=== PATIENT | male | born 1950 | race Caucasian/White ===

== ENCOUNTER 2017-08-30 18:42 | Inpatient (IN) | payer MEDICARE ==
[~2017-08-30] VITALS: Ht 175.3 cm; Wt 59.6 kg
--- NOTE | 2017-08-30 19:53 | PD.CONS ---
History of Present Illness Service Neurosurgery Consult Requested By Insulation Blower Reason for Consult Brain mass Primary Care Physician Unknown Diagnoses: History of Present Illness 66-year-old right-handed male with a two-week history of confusion with difficulty with speech and generalized weakness. Patient and also relates six-month history of right leg weakness and especially when he is driving he notices right leg getting weak and numb. Denies any headache or any nausea or vomiting. Denies any incontinence. His appetite has been poor and his loss weight over the past several months. Given worsening speech and confusion he was taken to [facility] in [place] and CT scan head without contrast obtained reveals a 5.1 cm cystic mass in the left frontal lobe with surrounding vasogenic edema and mass effect. He is transferred to [facility] for further management. Review of Systems ROS Limitations: Speech Impaired, Poor Historian Constitutional: COMPLAINS OF: Diaphoretic episodes, Fatigue, Fever, Weight gain , Weight loss, Chills, Dizziness, Change in appetite, Night Sweats Endocrine: DENIES: Heat/cold intolerance, Polydipsia, Polyuria, Polyphagia Eyes: DENIES: Blurred vision, Diplopia, Eye inflammation, Eye pain, Vision loss , Photosensitivity, Double Vision Ears, nose, mouth, throat: DENIES: Tinnitus, Hearing loss, Vertigo, Nasal discharge, Oral lesions, Throat pain, Hoarseness, Ear Pain, Running Nose, Epistaxis, Sinus Pain, Toothache, Odynophagia Respiratory: COMPLAINS OF: Cough, Wheezing, Shortness of breath, DENIES: Apneas , Snoring, Hemoptysis, Sputum production Cardiovascular: COMPLAINS OF: Dyspnea on Exertion, DENIES: Chest pain, Palpitations, Syncope, PND, Lower Extremity Edema, Orthopnea, Claudication Gastrointestinal: COMPLAINS OF: Constipation, DENIES: Abdominal pain, Black stools, Bloody stools, Diarrhea, Nausea, Vomiting, Difficulty Swallowing, Anorexia Genitourinary: DENIES: Sexual dysfunction, Urinary frequency, Urinary incontinence, Urgency, Hematuria, Dysuria, Nocturia, Penile Discharge, Testicular Pain, Testicular Swelling Musculoskeletal: DENIES: Joint pain, Muscle aches, Stiffness, Joint Swelling, Back pain, Neck pain Integumentary: DENIES: Abnormal pigmentation, Nail changes, Pruritus, Rash Immunologic/allergic: DENIES: Eczema, Urticaria Neurologic: COMPLAINS OF: Localized weakness, Paresthesias, Speech Problems, DENIES: Abnormal gait, Headache, Seizures, Tremor, Poor Balance Psychiatric: COMPLAINS OF: Confusion, DENIES: Anxiety, Mood changes, Depression , Hallucinations, Agitation, Suicidal Ideation, Homicidal Ideation, Delusions Except as stated in HPI: all other systems reviewed are Neg Past Family Social History Allergies: Coded Allergies: No Known Allergies (Unverified , 08/30/17) Past Medical History Coronary artery disease with myocardial infarction, rheumatoid arthritis, 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 Past Surgical History Coronary artery bypass grafting 2 years ago and also several years prior to that with interim coronary artery stenting Reported Medications Ventolin Hfa 18 GM Inh (Albuterol Sulfate) 90 Mcg/Act Aer 1 Puff INH QID Aldactone (Spironolactone) 25 Mg Tab 25 Mg PO DAILY Prednisone 1 Mg Tab 1 Mg PO BID Lisinopril 10 Mg Tab 10 Mg PO DAILY Coreg (Carvedilol) 25 Mg Tab 25 Mg PO BID Atorvastatin (Atorvastatin Calcium) 80 Mg Tab 80 Mg PO HS Aspirin EC (Aspirin) 81 Mg Tabdr 81 Mg PO DAILY Norvasc (Amlodipine Besylate) 10 Mg Tab 10 Mg PO DAILY Family History Father had lung cancer otherwise unremarkable Social History He is and his and daughter are here with him. They spend the winter time in [place] and this year in [place]. He smokes over a pack a day of cigarettes and drinks alcohol on weekends. Physical Exam Physical Exam GENERAL: This is a well-nourished, well-developed patient, in no apparent distress. SKIN: No rashes, ecchymoses or lesions. Cool and dry. HEAD: Atraumatic. Normocephalic. No temporal or scalp tenderness. EYES: Pupils equal round and reactive. Extraocular motions intact. No scleral icterus. No injection or drainage. ENT: Nose without bleeding, purulent drainage or septal hematoma. Throat without erythema, tonsillar hypertrophy or exudate. Uvula midline. Airway patent. NECK: Trachea midline. No JVD or lymphadenopathy. Supple, nontender, no meningeal signs. CARDIOVASCULAR: Regular rate and rhythm with positive murmur. RESPIRATORY: Bilateral wheezing noted. GASTROINTESTINAL: Abdomen soft, non-tender, nondistended. No hepato-splenomegaly , or palpable masses. No guarding. MUSCULOSKELETAL: Extremities without clubbing, cyanosis, or edema. No joint tenderness, effusion, or edema noted. No calf tenderness. Negative Homans sign bilaterally. NEUROLOGICAL:. Awake but only oriented to name not location or date; moderate expressive aphasia with the naming and word finding difficulty. Follows simple commands with difficulty with complex commands. Extraocular muscles are intact, pupils are equal, face is symmetric, tongue is midline. He moves all 4 extremities overall good strength. Equivocal right Babinski. Light touch sensation intact Assessment and Plan Assessment and Plan 66-year-old gentleman with a large left frontal cystic mass with surrounding mass effect and edema. Differential diagnosis includes a metastasis as well as a primary lung mass along with the infectious inflammatory etiologies. We will obtain an MRI scan of the brain with and without contrast. Also need systemic workup with a CT of the chest, abdomen and pelvis to rule out systemic primary or metastatic disease. He'll be started on Decadron for the edema along with Keppra for seizure prophylaxis and gastrointestinal stress ulcer prophylaxis. Mechanical DVT prophylaxis. Proventil treatments for his wheezing likely related to COPD and chronic smoking. Sean Freeman MD Aug 30, 2017 19:53
[2017-08-30 20:00] VITALS: PULSE 77
[2017-08-30] MEDS ORDERED: CALCIUM GLUCONATE INJ 1 GM in SODIUM CHLORIDE 0.9% INJ 100 ML IV PRN (20:00)
[2017-08-30] MEDS ORDERED: LABETALOL HCL 100 MG/20 ML VIAL IV PUSH PRN (20:00)
[2017-08-30] MEDS ORDERED: niCARdipine INJ 25 MG in SODIUM CHLOR 0.9% 250 ML INJ 240 ML IV PRN (20:00)
[2017-08-30] MEDS ORDERED: ACETAMINOPHEN/HYDROcodone 325 MG/10 MG TAB PO PRN ×2 (20:00)
[2017-08-30] MEDS ORDERED: POTASSIUM CHLOR 20 MEQ PREMIX 100 ML IV PRN (20:00)
[2017-08-30] MEDS ORDERED: RESP: ALBUTEROL 2.5 MG/3 ML NEB (PRN) NEB (20:00)
[2017-08-30] MEDS ORDERED: SENNOSIDES 8.6 MG TAB PO PRN (20:00)
[2017-08-30] MEDS ORDERED: LORazepam 2 MG/ML VIAL IV PUSH PRN (20:00)
[2017-08-30] MEDS ORDERED: BISACODYL 10 MG SUPP RECTAL PRN (20:00)
[2017-08-30] MEDS ORDERED: MAGNESIUM HYDROXIDE SUSP 30 ML CUP PO PRN (20:00)
[2017-08-30] MEDS ORDERED: ALUMINUM/MAGNESIUM/SIMETH 30 ML CUP PO PRN (20:00)
[2017-08-30] MEDS ORDERED: MAGNESIUM SULFATE INJ 2 GM in SODIUM CHLORIDE 0.9% INJ 100 ML IV PRN (20:00)
[2017-08-30] MEDS ORDERED: SODIUM CHLORIDE 0.9% FLUSH 10 ML FLUSH IV FLUSH PRN (20:00)
[2017-08-30] MEDS ORDERED: PROMETHAZINE INJ 25 MG/ML VIAL IM PRN (20:00)
[2017-08-30] MEDS ORDERED: LACTULOSE SYRUP 20 GM/30 ML CUP PO PRN (20:00)
[2017-08-30] MEDS ORDERED: ONDANSETRON HCL 4 MG/2 ML VIAL IV PUSH PRN (20:00)
[2017-08-30] MEDS ORDERED: cloNIDine HCL 0.1 MG TAB PO PRN (20:00)
[2017-08-30 21:24] VITALS: O2SAT 93
[2017-08-30] MEDS: levETIRAcetam 500 MG TAB PO SCH (21:28)
[2017-08-30] MEDS: DEXAMETHASONE SOD PHOS 4 MG/ML VIAL IV PUSH SCH (21:28)
[2017-08-30] MEDS: DOCUSATE SODIUM 50 MG/SENNA 8.6 MG TAB PO SCH (21:28)
[2017-08-30] MEDS: SODIUM CHLORIDE 0.9% FLUSH 10 ML FLUSH IV FLUSH SCH (21:29)
[2017-08-30 22:00] VITALS: PULSE 78
[2017-08-30] MEDS ORDERED: RESP: ALBUTEROL 2.5 MG/IPRATROPIUM 0.5 MG NEB (PRN) NEB (22:30)
--- NOTE | 2017-08-30 22:30 | HHI.HP ---
HPI Service Critical Care Medicine Primary Care Physician Unknown Admission Diagnosis Diagnosis: Travel History International Travel<30 Days: No Contact w/Intl Traveler <30 Da: No Traveled to Known Affected Are: No History of Present Illness 66-year-old right-handed male presented to [facility] with a two- week history of confusion with difficulty with speech and generalized weakness. He also relates six-month history of right leg weakness and especially when he is driving he notices right leg getting weak and numb. Denies any headache or any nausea or vomiting. Denies any incontinence. His appetite has been poor and his loss weight over the past several months. Given worsening speech and confusion he was taken to [facility] in [place] and CT scan head without contrast obtained reveals a 5.1 cm cystic mass in the left frontal lobe with surrounding vasogenic edema and mass effect. He is transferred to [facility] for higher level of care. Review of Systems ROS Limitations: Speech Impaired, Poor Historian ROS Constitutional: COMPLAINS OF: Diaphoretic episodes, Fatigue, Fever, Weight gain , Weight loss, Chills, Dizziness, Change in appetite, Night Sweats Endocrine: DENIES: Heat/cold intolerance, Polydipsia, Polyuria, Polyphagia Eyes: DENIES: Blurred vision, Diplopia, Eye inflammation, Eye pain, Vision loss , Photosensitivity, Double Vision Ears, nose, mouth, throat: DENIES: Tinnitus, Hearing loss, Vertigo, Nasal discharge, Oral lesions, Throat pain, Hoarseness, Ear Pain, Running Nose, Epistaxis, Sinus Pain, Toothache, Odynophagia Respiratory: COMPLAINS OF: Cough, Wheezing, Shortness of breath, DENIES: Apneas , Snoring, Hemoptysis, Sputum production Cardiovascular: COMPLAINS OF: Dyspnea on Exertion, DENIES: Chest pain, Palpitations, Syncope, PND, Lower Extremity Edema, Orthopnea, Claudication Gastrointestinal: COMPLAINS OF: Constipation, DENIES: Abdominal pain, Black stools, Bloody stools, Diarrhea, Nausea, Vomiting, Difficulty Swallowing, Anorexia Genitourinary: DENIES: Sexual dysfunction, Urinary frequency, Urinary incontinence, Urgency, Hematuria, Dysuria, Nocturia, Penile Discharge, Testicular Pain, Testicular Swelling Musculoskeletal: DENIES: Joint pain, Muscle aches, Stiffness, Joint Swelling, Back pain, Neck pain Integumentary: DENIES: Abnormal pigmentation, Nail changes, Pruritus, Rash Immunologic/allergic: DENIES: Eczema, Urticaria Neurologic: COMPLAINS OF: Localized weakness, Paresthesias, Speech Problems, DENIES: Abnormal gait, Headache, Seizures, Tremor, Poor Balance Psychiatric: COMPLAINS OF: Confusion, DENIES: Anxiety, Mood changes, Depression , Hallucinations, Agitation, Suicidal Ideation, Homicidal Ideation, Delusions Past Family Social History Allergies: Coded Allergies: No Known Allergies (Unverified , 08/30/17) Past Medical History Coronary artery disease with myocardial infarction Rheumatoid arthritis 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 Past Surgical History Coronary artery bypass grafting 2 years ago and also several years prior to that with interim coronary artery stenting Reported Medications Reported Meds & Active Scripts Active Reported Ventolin Hfa 18 GM Inh (Albuterol Sulfate) 90 Mcg/Act Aer 1 Puff INH QID Aldactone (Spironolactone) 25 Mg Tab 25 Mg PO DAILY Prednisone 1 Mg Tab 1 Mg PO BID Lisinopril 10 Mg Tab 10 Mg PO DAILY Coreg (Carvedilol) 25 Mg Tab 25 Mg PO BID Atorvastatin (Atorvastatin Calcium) 80 Mg Tab 80 Mg PO HS Aspirin EC (Aspirin) 81 Mg Tabdr 81 Mg PO DAILY Norvasc (Amlodipine Besylate) 10 Mg Tab 10 Mg PO DAILY Active Ordered Medications Current Medications Medications (Trade) Dose Ordered Sig/Aisha Route PRN Reason Start Time Stop Time Status Last Admin Dose Admin Sodium Chloride (NS Flush) 2 ml UNSCH PRN IV FLUSH FLUSH AFTER USING IV ACCESS 08/30/17 20:00 Sodium Chloride (NS Flush) 2 ml BID IV FLUSH 08/30/17 21:00 08/30/17 21:29 Levetriacetam (Keppra) 500 mg Q12H PO 08/30/17 21:00 08/30/17 21:28 Lorazepam (Ativan Inj) 1 mg Q1H PRN IV PUSH SEIZURES 08/30/17 20:00 Al Hydrox/Mg Hydrox/Simethicone (Mag-Al Plus Susp Liq) 30 ml Q6H PRN PO DYSPEPSIA 08/30/17 20:00 Pantoprazole Sodium (Protonix) 40 mg DAILY PO 08/31/17 09:00 Ondansetron HCl (Zofran Inj) 4 mg Q6H PRN IV PUSH NAUSEA OR VOMITING 08/30/17 20:00 Promethazine HCl (Phenergan Inj) 25 mg Q4H PRN IM NAUSEA OR VOMITING 08/30/17 20:00 Calcium Gluconate 1 gm/Sodium Chloride 110 ml @ 110 mls/hr UNSCH PRN IV SEE LABEL COMMENTS 08/30/17 20:00 Potassium Chloride 100 ml @ 50 mls/hr UNSCH PRN IV POTASSIUM LESS THAN 4 08/30/17 20:00 Magnesium Sulfate 2 gm/Sodium Chloride 104 ml @ 100 mls/hr UNSCH PRN IV MAGNESIUM LESS THAN 2 08/30/17 20:00 Acetaminophen/ Hydrocodone Bitart ([place] 10-325 Mg) 1 tab Q4H PRN PO PAIN SCALE 1 TO 5 08/30/17 20:00 Acetaminophen/ Hydrocodone Bitart ([place] 10-325 Mg) 2 tab Q4H PRN PO PAIN SCALE 6 TO 10 08/30/17 20:00 Dexamethasone Sodium Phosphate (Decadron Inj) 4 mg Q6H IV PUSH 08/30/17 21:00 08/30/17 21:28 Labetalol HCl (Trandate Inj) 10 mg Q1H PRN IV PUSH SYS BP GREATER THAN 170 MMHG 08/30/17 20:00 Clonidine (Catapres) 0.1 mg Q6H PRN PO SYS BP GREATER THAN 170 MMHG 08/30/17 20:00 Albuterol Sulfate (Albuterol Neb) 2.5 mg Q4HR NEB PRN NEB WHEEZING 08/30/17 20:00 Senna/Docusate Sodium (Kati-Colace) 1 tab BID PO 08/30/17 21:00 08/30/17 21:28 Magnesium Hydroxide (Milk Of Magnesia Liq) 30 ml Q12H PRN PO Mild constipation 08/30/17 20:00 Sennosides (Senokot) 17.2 mg Q12H PRN PO Moderate constipation 08/30/17 20:00 Bisacodyl (Dulcolax Supp) 10 mg DAILY PRN RECTAL SEVERE CONSITIPATION 08/30/17 20:00 Lactulose (Lactulose Liq) 30 ml DAILY PRN PO SEVERE CONSITIPATION 08/30/17 20:00 Nicardipine HCl 25 mg/Sodium Chloride 250 ml @ 50 mls/hr TITRATE PRN IV Blood pressure management 08/30/17 20:00 Family History Father had lung cancer otherwise unremarkable Social History He smokes over a pack a day of cigarettes and drinks alcohol on weekends. Denies illicit drug abuse He is and his and daughter are here with him. Physical Exam Vital Signs Vital Signs Date Time Temp Pulse Resp B/P (MAP) Pulse Ox O2 Delivery O2 Flow Rate FiO2 08/30/17 21:24 93 Physical Exam GENERAL: This is a well-nourished, well-developed patient, in no apparent distress. SKIN: No rashes, ecchymoses or lesions. Cool and dry. HEAD: Atraumatic. Normocephalic. No temporal or scalp tenderness. EYES: Pupils equal round and reactive. Extraocular motions intact. No scleral icterus. No injection or drainage. ENT: Nose without bleeding, purulent drainage or septal hematoma. Throat without erythema, tonsillar hypertrophy or exudate. Uvula midline. Airway patent. NECK: Trachea midline. No JVD or lymphadenopathy. Supple, nontender, no meningeal signs. CARDIOVASCULAR: Regular rate and rhythm with positive murmur. RESPIRATORY: Bilateral wheezing noted. GASTROINTESTINAL: Abdomen soft, non-tender, nondistended. No hepato-splenomegaly , or palpable masses. No guarding. MUSCULOSKELETAL: Extremities without clubbing, cyanosis, or edema. No joint tenderness, effusion, or edema noted. No calf tenderness. Negative Homans sign bilaterally. NEUROLOGICAL:. Awake but only oriented to name not location or date; moderate expressive aphasia with the naming and word finding difficulty. Follows simple commands with difficulty with complex commands. Extraocular muscles are intact, pupils are equal, face is symmetric, tongue is midline. He moves all 4 extremities overall good strength. Equivocal right Babinski. Light touch sensation intact Laboratory Laboratory Tests Test 08/31/17 00:14 08/31/17 00:15 White Blood Count 3.3 TH/MM3 Red Blood Count 4.19 MIL/MM3 Hemoglobin 14.2 GM/DL Hematocrit 40.2 % Mean Corpuscular Volume 96.0 FL Mean Corpuscular Hemoglobin 33.9 PG Mean Corpuscular Hemoglobin Concent 35.4 % Red Cell Distribution Width 12.9 % Platelet Count 289 TH/MM3 Mean Platelet Volume 6.8 FL Prothrombin Time 11.8 SEC Prothromb Time International Ratio 1.2 RATIO Activated Partial Thromboplast Time 27.2 SEC Blood Urea Nitrogen 6 MG/DL Creatinine 0.63 MG/DL Random Glucose 160 MG/DL Total Protein 8.0 GM/DL Albumin 3.5 GM/DL Calcium Level 9.4 MG/DL Phosphorus Level 3.4 MG/DL Magnesium Level 1.7 MG/DL Alkaline Phosphatase 109 U/L Aspartate Amino Transf (AST/SGOT) 17 U/L Alanine Aminotransferase (ALT/SGPT) 23 U/L Total Bilirubin 0.4 MG/DL Sodium Level 134 MEQ/L Potassium Level 4.3 MEQ/L Chloride Level 101 MEQ/L Carbon Dioxide Level 26.0 MEQ/L Anion Gap 7 MEQ/L Estimat Glomerular Filtration Rate 127 ML/MIN Caprini VTE Risk Assessment Caprini VTE Risk Assessment: Mod/High Risk (score >= 2) Caprini Risk Assessment Model Point Value = 1 Point Value = 2 Point Value = 3 Point Value = 5 Age 41-60 Minor surgery BMI > 25 kg/m2 Swollen legs Varicose veins or History of unexplained or recurrent spontaneous Oral contraceptives or hormone replacement Sepsis (< 1 month) Serious lung disease, including pneumonia (< 1 month) Abnormal pulmonary function Acute myocardial infarction Congestive heart failure (< 1 month) History of inflammatory bowel disease Medical patient at bed rest Age 61-74 Arthroscopic surgery Major open surgery (> 45 min) Laparoscopic surgery (> 45 min) Malignancy Confined to bed (> 72 hours) Immobilizing plaster cast Central venous access Age >= 75 History of VTE Family history of VTE Factor V Leiden Prothrombin [id number] Lupus anticoagulant Anticardiolipin antibodies Elevated serum homocysteine Heparin-induced thrombocytopenia Other congenital or acquired thrombophilia Stroke (< 1 month) Elective arthroplasty Hip, pelvis, or leg fracture Acute spinal cord injury (< 1 month) Prophylaxis Regimen Total Risk Factor Score Risk Level Prophylaxis Regimen 0-1 Low Early ambulation 2 Moderate Order ONE of the following: *Sequential Compression Device (SCD) *Heparin 5000 units SQ BID 3-4 Higher Order ONE of the following medications: *Heparin 5000 units SQ TID *Enoxaparin/Lovenox 40 mg SQ daily (WT < 150 kg, CrCl > 30 mL/min) *Enoxaparin/Lovenox 30 mg SQ daily (WT < 150 kg, CrCl > 10-29 mL/min) *Enoxaparin/Lovenox 30 mg SQ BID (WT < 150 kg, CrCl > 30 mL/min) AND/OR *Sequential Compression Device (SCD) 5 or more Highest Order ONE of the following medications: *Heparin 5000 units SQ TID (Preferred with Epidurals) *Enoxaparin/Lovenox 40 mg SQ daily (WT < 150 kg, CrCl > 30 mL/min) *Enoxaparin/Lovenox 30 mg SQ daily (WT < 150 kg, CrCl > 10-29 mL/min) *Enoxaparin/Lovenox 30 mg SQ BID (WT < 150 kg, CrCl > 30 mL/min) AND *Sequential Compression Device (SCD) Assessment and Plan Assessment and Plan Brain mass -Neurosurgical consultation -Decadron IV -Keppra prophylaxis -Neuro checks per unit protocol -Further workup per neurosurgery Coronary artery disease -Continue home meds -Aspirin -Atorvastatin Hypertension -Labetalol and clonidine as needed to keep SBP less than 150 -Aldactone -Lisinopril -Coreg -Norvasc COPD -No exacerbation -DuoNeb's as needed -Home dose prednisone DVT GI peripheral -Tests SCDs -Subcu heparin -Pantoprazole Critical Care: The total critical care time was 35 minutes. Time to perform other separately billable procedures was not included in the critical care time. Rik Lou MD Aug 30, 2017 10:30 pm
[2017-08-31] VITALS (16 sets, daily range): BP systolic 94–103; BP diastolic 54–59; PULSE 63–86; RESP 20–26; TEMP 97.9–98.4; O2SAT 94–98
[2017-08-31 00:35] LABS: HEMATOCRIT 40.2 % (39.0-51.0); HEMOGLOBIN 14.2 GM/DL (13.0-17.0); MEAN CORPUSCULAR HEMOGLOBIN 33.9 PG (27.0-34.0); MEAN CORPUSCULAR HGB CONC 35.4 % (32.0-36.0); MEAN PLATELET VOLUME 6.8 FL (7.0-11.0); PLATELET COUNT 289 TH/MM3 (150-450); RED BLOOD COUNT 4.19 MIL/MM3 (4.50-5.90); RED CELL DISTRIBUTION WIDTH 12.9 % (11.6-17.2); WHITE BLOOD COUNT 3.3 TH/MM3 (4.0-11.0)
[2017-08-31 00:50] LABS: INTERNATIONAL NORMALIZED RATIO 1.2 RATIO; PROTHROMBIN TIME - PATIENT 11.8 SEC (9.8-11.6)
[2017-08-31 00:51] LABS: ALBUMIN 3.5 GM/DL (3.4-5.0); ALT (GPT) 23 U/L (12-78); AST (GOT) 17 U/L (15-37); BLOOD UREA NITROGEN 6 MG/DL (7-18); CALCIUM 9.4 MG/DL (8.5-10.1); CHLORIDE 101 MEQ/L (98-107); CREATININE 0.63 MG/DL (0.60-1.30); GLOMERULAR FILTRATION RATE 127 ML/MIN (>89); GLUCOSE,RANDOM 160 MG/DL (74-106); MAGNESIUM 1.7 MG/DL (1.5-2.5); PHOSPHORUS 3.4 MG/DL (2.5-4.9); SODIUM (NA) 134 MEQ/L (136-145)
[2017-08-31 00:53] LABS: ALKALINE PHOSPHATASE 109 U/L (45-117); TOTAL BILIRUBIN ADULT 0.4 MG/DL (0.2-1.0)
[2017-08-31] MEDS ORDERED: ASPI81TA23 PO (01:50)
[2017-08-31] MEDS ORDERED: PRED1 PO (01:50)
[2017-08-31] MEDS ORDERED: CORE25TA PO (01:50)
[2017-08-31] MEDS ORDERED: ATOR80TA45 PO (01:50)
[2017-08-31] MEDS ORDERED: LISI10TA3 PO (01:50)
[2017-08-31] MEDS ORDERED: SPIR25 PO (01:50)
[2017-08-31] MEDS ORDERED: AMLO10 PO (01:50)
[2017-08-31] MEDS ORDERED: VENTAER INH (01:50)
[2017-08-31] MEDS: DEXAMETHASONE SOD PHOS 4 MG/ML VIAL IV PUSH SCH ×4 (03:28→21:03)
[2017-08-31] MEDS ORDERED: HEPARIN SODIUM - SQ 10,000 UNITS/ML VIAL SQ SCH (06:00)
[2017-08-31 07:01] LABS: AUTOMATED NEUTROPHIL # 3.6 TH/MM3 (1.8-7.7); BASOPHIL % 0.2 % (0.0-2.0); HEMATOCRIT 40.7 % (39.0-51.0); HEMOGLOBIN 14.3 GM/DL (13.0-17.0); LYMPH % 16.8 % (9.0-44.0); LYMPHOCYTE # 0.7 TH/MM3 (1.0-4.8); MEAN CELL VOLUME 94.6 FL (80.0-100.0); MEAN CORPUSCULAR HEMOGLOBIN 33.1 PG (27.0-34.0); MEAN PLATELET VOLUME 6.8 FL (7.0-11.0); MONO % 1.1 % (0.0-8.0); MONOCYTE # 0.1 TH/MM3 (0-0.9); NEUT % 81.9 % (16.0-70.0); PLATELET COUNT 317 TH/MM3 (150-450); RED CELL DISTRIBUTION WIDTH 12.8 % (11.6-17.2); WHITE BLOOD COUNT 4.4 TH/MM3 (4.0-11.0)
[2017-08-31 07:25] LABS: ALBUMIN 3.5 GM/DL (3.4-5.0); AST (GOT) 20 U/L (15-37); BICARBONATE 23.3 MEQ/L (21.0-32.0); BLOOD UREA NITROGEN 8 MG/DL (7-18); CALCIUM 9.4 MG/DL (8.5-10.1); CHLORIDE 100 MEQ/L (98-107); CREATININE 0.69 MG/DL (0.60-1.30); GLOMERULAR FILTRATION RATE 114 ML/MIN (>89); GLUCOSE,RANDOM 147 MG/DL (74-106); MAGNESIUM 1.8 MG/DL (1.5-2.5); SODIUM (NA) 135 MEQ/L (136-145)
[2017-08-31 07:30] LABS: ALKALINE PHOSPHATASE 115 U/L (45-117); ALT (GPT) 25 U/L (12-78); PHOSPHORUS 4.4 MG/DL (2.5-4.9); TOTAL BILIRUBIN ADULT 0.5 MG/DL (0.2-1.0); TOTAL PROTEIN 8.2 GM/DL (6.4-8.2)
[2017-08-31] MEDS: RESP: ALBUTEROL 2.5 MG/IPRATROPIUM 0.5 MG NEB (SCH) NEB ×5 (07:37→20:03)
[2017-08-31] MEDS: LISINOPRIL 10 MG TAB PO SCH (08:59)
[2017-08-31] MEDS ORDERED: ASPIRIN EC 81 MG TABEC PO SCH (09:00)
[2017-08-31] MEDS: CARVEDILOL 12.5 MG TAB PO SCH ×2 (09:00→21:03)
[2017-08-31] MEDS ORDERED: predniSONE 1 MG TAB PO SCH (09:00)
[2017-08-31] MEDS: SPIRONOLACTONE 25 MG TAB PO SCH (09:05)
[2017-08-31] MEDS: DOCUSATE SODIUM 50 MG/SENNA 8.6 MG TAB PO SCH ×2 (09:05→21:05)
[2017-08-31] MEDS: SODIUM CHLORIDE 0.9% FLUSH 10 ML FLUSH IV FLUSH SCH ×2 (09:05→21:04)
[2017-08-31] MEDS: PANTOPRAZOLE SOD 40 MG DELAYED RELEASE TAB PO SCH (09:05)
[2017-08-31] MEDS: levETIRAcetam 500 MG TAB PO SCH ×2 (09:06→21:04)
[2017-08-31] MEDS ORDERED: RESP: ALBUTEROL 2.5 MG/3 ML NEB (PRN) NEB (10:15)
[2017-08-31] MEDS ORDERED: DEXTROSE 50% IN WATER 50 ML VIAL(D50) IV PUSH PRN (10:15)
[2017-08-31] MEDS ORDERED: GLUCAGON 1 MG/ML VIAL OTHER PRN (10:15)
--- NOTE | 2017-08-31 10:32 | HHI.NSPN ---
(Mika Martinez) History Chief Complaint: Brain mass with confusion. (Mika Martinez) Interval History 66-year-old right-handed male with a two-week history of confusion with difficulty with speech and generalized weakness. Patient and also relates six-month history of right leg weakness and especially when he is driving he notices right leg getting weak and numb. Denies any headache or any nausea or vomiting. Denies any incontinence. His appetite has been poor and his loss weight over the past several months. Given worsening speech and confusion he was taken to [facility] in [place] and CT scan head without contrast obtained reveals a 5.1 cm cystic mass in the left frontal lobe with surrounding vasogenic edema and mass effect. He is transferred to [facility] for further management. 08/31/17: Pt awake and alert. He has some confusion but follows simple commands well. He has some expressive aphasia. He has had complains of numbness in right lower leg which he states is improved today. (Mika Martinez) Review of Systems General: Negative for: fever, chills, insomnia Respiratory: Negative for: shortness of breath, cough, sputum Cardiovascular: Negative for: chest pain Gastrointestinal: Negative for: nausea, vomitting, diarrhea, constipation ( Mika Martinez) Exam Results Vital Signs Date Time Temp Pulse Resp B/P (MAP) Pulse Ox O2 Delivery O2 Flow Rate FiO2 08/31/17 07:41 97 08/31/17 06:00 82 08/31/17 01:02 21 Intake and Output 08/31/17 08/31/17 09/01/17 08:00 16:00 00:00 Intake Total 180 ml Output Total 800 ml Balance -620 ml (Mika Martinez) Physical Examination General: Pt awake and alert resting in bed in the ICU. Eyes: Pupils equal. Sclera anicteric. Resp: CTA bilaterally. Heart: NSR. 2/6 systolic murmurs Abd: Soft positive bs Skin: No cyanosis or erythema Muscle: Pt moves all 4 extremities appears symmetrically with good strength. Neuro: Pt awake and alert. He follows commands. He has some expressive aphasia and confusion with poor insight although he agrees with plan and nods his head he understands. Pupils equal 3mm bilaterally. (Mika Martinez) Lab, Micro, Other Results Laboratory Tests Test 08/31/17 00:14 08/31/17 00:15 08/31/17 06:40 White Blood Count 3.3 TH/MM3 4.4 TH/MM3 Red Blood Count 4.19 MIL/MM3 4.30 MIL/MM3 Hemoglobin 14.2 GM/DL 14.3 GM/DL Hematocrit 40.2 % 40.7 % Mean Corpuscular Volume 96.0 FL 94.6 FL Mean Corpuscular Hemoglobin 33.9 PG 33.1 PG Mean Corpuscular Hemoglobin Concent 35.4 % 35.0 % Red Cell Distribution Width 12.9 % 12.8 % Platelet Count 289 TH/MM3 317 TH/MM3 Mean Platelet Volume 6.8 FL 6.8 FL Prothrombin Time 11.8 SEC Prothromb Time International Ratio 1.2 RATIO Activated Partial Thromboplast Time 27.2 SEC Blood Urea Nitrogen 6 MG/DL 8 MG/DL Creatinine 0.63 MG/DL 0.69 MG/DL Random Glucose 160 MG/DL 147 MG/DL Total Protein 8.0 GM/DL 8.2 GM/DL Albumin 3.5 GM/DL 3.5 GM/DL Calcium Level 9.4 MG/DL 9.4 MG/DL Phosphorus Level 3.4 MG/DL 4.4 MG/DL Magnesium Level 1.7 MG/DL 1.8 MG/DL Alkaline Phosphatase 109 U/L 115 U/L Aspartate Amino Transf (AST/SGOT) 17 U/L 20 U/L Alanine Aminotransferase (ALT/SGPT) 23 U/L 25 U/L Total Bilirubin 0.4 MG/DL 0.5 MG/DL Sodium Level 134 MEQ/L 135 MEQ/L Potassium Level 4.3 MEQ/L 4.0 MEQ/L Chloride Level 101 MEQ/L 100 MEQ/L Carbon Dioxide Level 26.0 MEQ/L 23.3 MEQ/L Anion Gap 7 MEQ/L 12 MEQ/L Estimat Glomerular Filtration Rate 127 ML/MIN 114 ML/MIN Nasal Screen MRSA (PCR) MRSA NOT DETECTED Neutrophils (%) (Auto) 81.9 % Lymphocytes (%) (Auto) 16.8 % Monocytes (%) (Auto) 1.1 % Eosinophils (%) (Auto) 0.0 % Basophils (%) (Auto) 0.2 % Neutrophils # (Auto) 3.6 TH/MM3 Lymphocytes # (Auto) 0.7 TH/MM3 Monocytes # (Auto) 0.1 TH/MM3 Eosinophils # (Auto) 0.0 TH/MM3 Basophils # (Auto) 0.0 TH/MM3 CBC Comment DIFF FINAL Differential Comment (Mika Martinez) Medical Decision Making Impression and Plan A: 66-year-old gentleman with a large left frontal cystic mass with surrounding mass effect and edema. Differential diagnosis includes a metastasis as well as a primary lung mass along with the infectious inflammatory etiologies. P: We will obtain an MRI scan of the brain with and without contrast. Also need systemic workup with a CT of the chest, abdomen and pelvis to rule out systemic primary or metastatic disease. Continue with Decadron Continue with PT/OT/Speech therapy. Tentatively scheduled for Sunday for surgery. (Mika Martinez) Attending Statement The exam, history, and the medical decision-making described in the above note were completed with the assistance of the mid-level provider. I reviewed and agree with the findings presented. I attest that I had a [id number] encounter with the patient on the same day, and personally performed and documented my assessment and findings in the medical record. Neurologic exam essentially unchanged. MRI scan the brain with solitary large frontal cystic mass. Systemic workup pending. Plan on left craniotomy with resection of the frontal lobe mass. Discussed treatment options with the patient and daughter and they requested we proceed with surgery fully understanding the risks and benefits involved. He has significant COPD and moderate to high risk for complication including ventilator dependency and need for tracheostomy. They're willing to accept these risks and gave informed consent and accordingly the surgery will be scheduled for Sunday. (Sean Freeman MD) Mika Martinez Aug 31, 2017 10:32 Sean Freeman MD Aug 31, 2017 15:38
--- NOTE | 2017-08-31 10:55 | HHI.CCPN ---
Subjective Remarks/Hospital Course 66-year-old right-handed male presented to [facility] with a two- week history of confusion with difficulty with speech and generalized weakness. He also relates six-month history of right leg weakness and especially when he is driving he notices right leg getting weak and numb. Denies any headache or any nausea or vomiting. Denies any incontinence. His appetite has been poor and his loss weight over the past several months. Given worsening speech and confusion he was taken to [facility] in [place] and CT scan head without contrast obtained reveals a 5.1 cm cystic mass in the left frontal lobe with surrounding vasogenic edema and mass effect. He is transferred to [facility] for higher level of care. Subjective 08/31: Resting comfortably in chair in no acute distress. Planning for MRI of brain currently. CT chest, abdomen and pelvis ordered we will likely performed tomorrow due to contrast load. No seizure activity. Objective Vital Signs Date Time Temp Pulse Resp B/P (MAP) Pulse Ox O2 Delivery O2 Flow Rate FiO2 08/31/17 07:41 97 08/31/17 06:00 82 08/31/17 01:02 21 Intake and Output 08/31/17 08/31/17 08/31/17 07:59 15:59 23:59 Intake Total 180 ml Output Total 800 ml Balance -620 ml Result Diagram: 08/31/17 0640 08/31/17 0640 Objective Remarks GENERAL: 66-year-old male currently resting in bed in no acute distress SKIN: Warm and dry. No rashes HEAD: Atraumatic. Normocephalic. EYES: Pupils equal round and reactive. Extraocular motions intact. No scleral icterus. No injection or drainage. ENT/neck: No erythema or exudates. No thyromegaly lymphadenopathy. Trachea midline CARDIOVASCULAR: Regular rate and rhythm. S1, S2 no S4. 1/6 systolic murmur. RESPIRATORY: Diminished breath sounds throughout. Positive straight x-ray wheezing. GASTROINTESTINAL: Abdomen soft, non-tender, nondistended. Hypoactive bowel sounds appreciate MUSCULOSKELETAL: Extremities significant peripheral edema. NEUROLOGICAL:. Awake but only oriented to name not location or date; moderate expressive aphasia with the naming and word finding difficulty. Follows simple commands with difficulty with complex commands. Extraocular muscles are intact, pupils are equal, face is symmetric, tongue is midline. He moves all 4 extremities overall good strength. Equivocal right Babinski. Light touch sensation intact Urinary Catheter: No Assessment to: Continue Vascular Central Line Catheter: No Assessment to: Continue A/P Assessment and Plan Neuro/Psych: Currently on hydrocodone/acetaminophen 10/325 1-2 tablets every 4 hours as needed pain MRI brain pending. CT chest, abdomen and pelvis tomorrow rule out metastasis PT/OT/ST evaluate and treat CV: Hypertension Coronary disease status post CABG Dyslipidemia Currently on carvedilol 20 mg p.o. twice daily, amlodipine 10 mg p.o. daily lisinopril 10 mg p.o. daily for hypertension Continue Spironolactone 25 mg p.o. daily as well Continue atorvastatin 80 mg p.o. daily for dyslipidemia Holding aspirin 81 mg p.o. daily in light of mass Continue dexamethasone 4 mg IV every 6 hours Continue levetiracetam 500 mg p.o. twice daily seizure prophylaxis Resp: COPD Tobaccoism Possible early left lower lobe infiltrate/pneumonia Nasal cannula to maintain saturations greater than equal to 92% Incentive spirometry while awake Budesonide/formoterol 160/4.5 2 puffs twice daily Albuterol/ipratropium aerosols every 4 hours with albuterol aerosols every 2 hours. Dyspnea Follow-up on chest x-ray Tobacco cessation self-education booklet will be provided GI: Continue diet as tolerated Pantoprazole for GI prophylaxis Docusate sodium/senna 1 tablet twice daily for bowel regimen : No indication for Rodriges catheter Endo: Chronic prednisone use milligrams twice daily Hyperglycemia Sliding scale insulin with Novilin R with Accu-Cheks every 6 before meals at bedtime to maintain his euglycemia/low regimen Renal: Creatinine currently within normal limits Monitor urine output Accurate I's and O's Heme: CBC currently within normal limits ID: Possible community acquired pneumonia/left-sided Monitor for infection Start on piperacillin l/tazobactam azithromycin day #1 Blood cultures 2, UA, sputum, urine Legionella pneumococcal antigen/influenza a and B ordered FEN: Hyponatremia Follow BMP in a.m. MSK: RA PT evaluate and treat. On dexamethasone instead prednisone currently. Pain management per neurology section Access -Utilize peripheral IV. Central line if indicated Prophylaxis -GI -pantoprazole -DVT -SCD/holding pharmacological prophylaxis in light of brain mass. Initially when okay with neurosurgery Level 3 follow-up Aristeo Reed MD Aug 31, 2017 10:55
--- NOTE | 2017-08-31 10:56 | RADRPT ---
EXAM DATE/TIME: 08/31/2017 10:20 [facility] COMPARISON: No previous studies available for comparison. INDICATIONS : Short of breath MEDICAL HISTORY : Cardiovascular disease. brain mass SURGICAL HISTORY : CABG. ENCOUNTER: Initial ACUITY: 1 day PAIN SCORE: 0/10 LOCATION: Bilateral chest FINDINGS: A single AP portable erect view of the chest was obtained and demonstrates the patient is status post median sternotomy there is patchy opacity in the left lung base. There is no effusion. The heart siz e is within normal limits with no perihilar edema. The bony thorax is intact. There is mild periphera l scarring. CONCLUSION: 1. Patchy opacity in the left lung base which could represent early pneumonia. 2. Apparent scarring. 3. Status post median sternotomy. Tenzin Carrizales MD on August 31, 2017 at 10:53 Board Certified Radiologist. This report was verified electronically.
[2017-08-31] MEDS ORDERED: GADODIAMIDE PF 287 MG/ML 5 ML VIAL (for RAD MRI) IV PUSH ONE (11:42)
[2017-08-31] MEDS ORDERED: DIATRIZOATE MEGLUM/DIATRIZOATE SOD 9 ML CUP PO ONE (11:45)
[2017-08-31] MEDS: INSULIN ASPART SUPPLEMENTAL SCALE SQ SCH ×3 (12:00→21:00)
--- NOTE | 2017-08-31 12:10 | RADRPT ---
EXAM DATE/TIME: 08/31/2017 11:23 [facility] COMPARISON: No previous studies available for comparison. INDICATIONS : Confusion. CONTRAST: 12 cc Omniscan (gadodiamide) IV MEDICAL HISTORY : Chronic obstructive pulmonary disease. SURGICAL HISTORY : Appendectomy. CABG ENCOUNTER: Subsequent ACUITY: 2 day PAIN SCORE: 0/10 LOCATION: cranial TECHNIQUE: Multiplanar, multisequence MRI of the brain was performed both prior to and following the administrat ion of paramagnetic contrast. FINDINGS: There is a circumscribed 6 cm mass in the left frontal lobe with rim enhancement. There is surroundin g vasogenic edema and mass effect without to about 5 mm of [id number] midline shift at the anterio r corpus callosum. No other enhancing masses are identified in the brain. There is no evidence for recent infarct. There is no hydrocephalus. CONCLUSION: 1. 6 cm rim-enhancing mass in the left frontal lobe with surrounding vasogenic edema and mass effect. No other brain masses identified. Differential diagnosis includes primary brain tumor such as glioma . Cannot exclude metastatic disease. Thuan Mcdaniel MD on August 31, 2017 at 12:03 Board Certified Radiologist. This report was verified electronically.
[2017-08-31] MEDS: PIPERACIL-TAZO 4.5 GM PREMIX 100 ML IV SCH ×2 (14:37→20:59)
[2017-08-31] MEDS: AZITHROMYCIN INJ 500 MG in SODIUM CHLOR 0.9% 250 ML INJ 250 ML IV SCH (14:46)
[2017-08-31 15:03] LABS: BILIRUBIN, URINE NEG (NEG); BLOOD, URINE NEG (NEG); GLUCOSE,URINE NEG (NEG); KETONE, URINE TRACE mg/dL (NEG); MUCUS URINE FEW /lpf (OCC); NITRITE,URINE NEG (NEG); SQUAMOUS EPITHELIAL CELL URINE <1 /hpf (0-5); URINE COLOR YELLOW (YELLW/STRAW); URINE LEUKOCYTE ESTERASE NEG (NEG)
--- NOTE | 2017-08-31 17:39 | ECHRPT ---
Indication: CAD CONCLUSIONS The left ventricular systolic function is low normal with an estimated ejection fraction in the rang e of 50- 55%. Wall thickness is normal. Normal left ventricular size. Anterior mitral valve leaflet prolapse. Moderate mitral valve regurgitation. There is mild tricuspid valve regurgitation. The estimated pulmonary arterial pressure is 31.3 mmHg. Trivial pulmonary valve regurgitation. BP: 107 / 60 HR: 71 Rhythm: Sinus MEASUREMENTS (Male / Female) Normal Values Technical Quality:Fair 2D ECHO LV Diastolic Diameter PLAX 5.2 cm 4.2 - 5.9 / 3.9 - 5.3 cm LV Systolic Diameter PLAX 4.3 cm IVS Diastolic Thickness 0.9 cm 0.6 - 1.0 / 0.6 - 0.9 cm LVPW Diastolic Thickness 0.9 cm 0.6 - 1.0 / 0.6 - 0.9 cm LV Relative Wall Thickness 0.3 RV Internal Dim ED PLAX 3.1 cm LVOT Diameter 1.9 cm LA Systolic Diameter LX 2.9 cm 3.0 - 4.0 / 2.7 - 3.8 cm M-MODE Aortic Root Diameter MM 2.6 cm LA Systolic Diameter MM 3.7 cm LA Ao Ratio MM 1.4 AV Cusp Separation MM 2.0 cm DOPPLER AV Peak Velocity 113.0 cm/s AV Peak Gradient 5.1 mmHg LVOT Peak Velocity 111.0 cm/s LVOT Peak Gradient 4.9 mmHg AV Area Cont Eq pk 2.8 cm MV Area PHT 2.6 cm Mitral E Point Velocity 43.0 cm/s Mitral A Point Velocity 58.8 cm/s Mitral E to A Ratio 0.7 LV E' Lateral Velocity 8.3 cm/s Mitral E to LV E' Lateral Ratio 5.2 LV E' Septal Velocity 5.0 cm/s Mitral E to LV E' Septal Ratio 8.7 TR Peak Velocity 231.0 cm/s TR Peak Gradient 21.3 mmHg Right Atrial Pressure 10.0 mmHg Pulmonary Artery Systolic Pressu 31.3 mmHg Right Ventricular Systolic Press 31.3 mmHg FINDINGS LEFT VENTRICLE The left ventricular systolic function is low normal with an estimated ejection fraction in the rang e of 50- 55%. Wall thickness is normal. Normal left ventricular size. RIGHT VENTRICLE Normal right ventricular size and systolic function. LEFT ATRIUM The left atrial size is normal. RIGHT ATRIUM The right atrial size is normal. ATRIAL SEPTUM Normal atrial septal thickness without atrial level shunting by limited color doppler interrogation. AORTA The aortic root and proximal ascending aorta are normal in size on limited imaging. MITRAL VALVE Anterior mitral valve leaflet prolapse. Moderate mitral valve regurgitation. AORTIC VALVE Trileaflet aortic valve. No aortic valve stenosis or regurgitation. TRICUSPID VALVE Structurally normal tricuspid valve. There is mild tricuspid valve regurgitation. The estimated pulmonary arterial pressure is 31.3 mmHg. PULMONARY VALVE Trivial pulmonary valve regurgitation. VESSELS The inferior vena cava is normal in size. PERICARDIUM No pericardial effusion. Abiodun Norton MD, FACC (Electronically Signed) Final Date:31 August 2017 17:38
[2017-08-31] MEDS: BUDESONIDE-FORMOTEROL 160/4.5 MCG INHALER INH SCH (20:59)
[2017-08-31] MEDS: ATORVASTATIN 80 MG TAB PO SCH (21:03)
[2017-09-01] VITALS (10 sets, daily range): BP systolic 86–130; BP diastolic 51–69; PULSE 56–76; RESP 15–20; TEMP 97.5–98; O2SAT 95–100
[2017-09-01] MEDS: PIPERACIL-TAZO 4.5 GM PREMIX 100 ML IV SCH ×4 (01:25→18:32)
[2017-09-01] MEDS: RESP: ALBUTEROL 2.5 MG/IPRATROPIUM 0.5 MG NEB (SCH) NEB ×6 (03:49→19:41)
[2017-09-01] MEDS: DEXAMETHASONE SOD PHOS 4 MG/ML VIAL IV PUSH SCH ×4 (06:19→21:21)
[2017-09-01] MEDS: LISINOPRIL 10 MG TAB PO SCH (09:00)
[2017-09-01] MEDS: DOCUSATE SODIUM 50 MG/SENNA 8.6 MG TAB PO SCH ×2 (09:37→21:20)
[2017-09-01] MEDS: BUDESONIDE-FORMOTEROL 160/4.5 MCG INHALER INH SCH ×2 (09:37→21:00)
[2017-09-01] MEDS: SPIRONOLACTONE 25 MG TAB PO SCH (09:37)
[2017-09-01] MEDS: levETIRAcetam 500 MG TAB PO SCH ×2 (09:37→21:20)
[2017-09-01] MEDS: SODIUM CHLORIDE 0.9% FLUSH 10 ML FLUSH IV FLUSH SCH ×2 (09:37→21:21)
[2017-09-01] MEDS: PANTOPRAZOLE SOD 40 MG DELAYED RELEASE TAB PO SCH (09:37)
[2017-09-01] MEDS: INSULIN ASPART SUPPLEMENTAL SCALE SQ SCH ×4 (09:38→23:15)
[2017-09-01] MEDS: CARVEDILOL 12.5 MG TAB PO SCH ×2 (09:40→21:20)
--- NOTE | 2017-09-01 10:51 | HHI.CCPN ---
Subjective Remarks/Hospital Course 66-year-old right-handed male presented to [facility] with a two- week history of confusion with difficulty with speech and generalized weakness. He also relates six-month history of right leg weakness and especially when he is driving he notices right leg getting weak and numb. Denies any headache or any nausea or vomiting. Denies any incontinence. His appetite has been poor and his loss weight over the past several months. Given worsening speech and confusion he was taken to [facility] in [place] and CT scan head without contrast obtained reveals a 5.1 cm cystic mass in the left frontal lobe with surrounding vasogenic edema and mass effect. He is transferred to [facility] for higher level of care. 08/31: Resting comfortably in chair in no acute distress. Planning for MRI of brain currently. CT chest, abdomen and pelvis ordered we will likely performed tomorrow due to contrast load. No seizure activity. Subjective 09/01: Resting in bed in no acute distress. Somewhat confused. Plan for CT chest abdomen pelvis today. Plan for OR on Sunday tentatively with neurosurgery Objective Vital Signs Date Time Temp Pulse Resp B/P (MAP) Pulse Ox O2 Delivery O2 Flow Rate FiO2 09/01/17 06:00 56 09/01/17 04:00 97.9 15 92/52 (65) 97 08/31/17 20:03 21 Intake and Output 09/01/17 09/01/17 09/02/17 08:00 16:00 00:00 Intake Total 200 ml Balance 200 ml Result Diagram: 08/31/17 0640 08/31/17 0640 Other Results Microbiology Date/Time Source Procedure Growth Status 08/31/17 14:16 Blood Peripheral Aerobic Blood Culture Pending Received 08/31/17 14:16 Blood Peripheral Anaerobic Blood Culture Pending Received 08/31/17 14:20 Nasal Aspirate Influenza Types A,B Antigen (STARLA) - Final NEGATIVE FOR FLU A AND B ANTIGEN.... Complete 08/31/17 14:15 Urine Catheterized Urine Legionella Antigen - Final PRESUMPTIVE NEGATIVE FOR LEGIONELLA P... Complete 08/31/17 14:15 Urine Catheterized Urine Streptococcus pneumoniae Antigen (M - Final PRESUMPTIVE NEGATIVE FOR STREPTOCOCCU... Complete Imaging Last Impressions Chest X-Ray 08/31/17 0000 Signed Impressions: Service Date/Time: Thursday, August 31, 2017 10:20 - CONCLUSION: 1. Patchy opacity in the left lung base which could represent early pneumonia. 2. Apparent scarring. 3. Status post median sternotomy. Tenzin Carrizales MD Brain MRI 08/31/17 0000 Signed Impressions: Service Date/Time: Thursday, August 31, 2017 11:23 - CONCLUSION: 1. 6 cm rim-enhancing mass in the left frontal lobe with surrounding vasogenic edema and mass effect. No other brain masses identified. Differential diagnosis includes primary brain tumor such as glioma. Cannot exclude metastatic disease. Thuan Mcdaniel MD Objective Remarks GENERAL: 66-year-old male currently resting in bed in no acute distress SKIN: Warm and dry. No rashes HEAD: Atraumatic. Normocephalic. EYES: Pupils equal round and reactive. Extraocular motions intact. No scleral icterus. No injection or drainage. ENT/neck: No erythema or exudates. No thyromegaly lymphadenopathy. Trachea midline CARDIOVASCULAR: Regular rate and rhythm. S1, S2 no S4. 1/6 systolic murmur. RESPIRATORY: Diminished breath sounds throughout. Positive straight x-ray wheezing. GASTROINTESTINAL: Abdomen soft, non-tender, nondistended. Hypoactive bowel sounds appreciate MUSCULOSKELETAL: Extremities significant peripheral edema. NEUROLOGICAL:. Awake but only oriented to name not location or date; moderate expressive aphasia with the naming and word finding difficulty. Follows simple commands with difficulty with complex commands. Extraocular muscles are intact, pupils are equal, face is symmetric, tongue is midline. He moves all 4 extremities overall good strength. Equivocal right Babinski. 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 Freeman. Plan for OR 4/2 for craniotomy/resection CV: Hypertension Coronary disease status post CABG Dyslipidemia Currently on carvedilol 25 mg p.o. twice daily, amlodipine 10 mg p.o. daily and lisinopril 10 mg p.o. daily for hypertension Continue Spironolactone 25 mg p.o. daily continue Continue atorvastatin 80 mg p.o. daily for dyslipidemia Holding aspirin 81 mg p.o. daily in light of mass Continue dexamethasone 4 mg IV every 6 hours Continue levetiracetam 500 mg p.o. twice daily seizure prophylaxis 2D echo- the left ventricular systolic function is low normal with an estimated ejection fraction in the range of 50-55%. Wall thickness is normal. Normal left ventricular size. Anterior mitral valve leaflet prolapse. Moderate mitral valve regurgitation. There is mild tricuspid valve regurgitation. The estimated pulmonary arterial pressure is 31.3 mmHg. Resp: COPD Tobaccoism Possible early left lower lobe infiltrate/pneumonia Nasal cannula to maintain saturations greater than equal to 92% Incentive spirometry while awake Budesonide/formoterol 160/4.5 2 puffs twice daily Albuterol/ipratropium aerosols every 4 hours with albuterol aerosols every 2 hours. Dyspnea Follow-up on chest x-ray Tobacco cessation self-education booklet will be provided GI: Continue Reglan diet as tolerated Pantoprazole for GI prophylaxis Docusate sodium/senna 1 tablet twice daily for bowel regimen : No indication for Rodriges catheter Endo: Chronic prednisone use milligrams twice daily Hyperglycemia Sliding scale insulin with Novilin R with Accu-Cheks before meals at bedtime to maintain his euglycemia/low regimen Renal: Creatinine currently within normal limits Monitor urine output Accurate I's and O's Heme: CBC currently within normal limits ID: Possible community acquired pneumonia/left-sided Monitor for infection Start on piperacillin l/tazobactam azithromycin day #2 Blood cultures 2, UA, sputum, urine Legionella pneumococcal antigen/influenza a and B ordered FEN: Hyponatremia Follow BMP in a.m. MSK: RA PT evaluate and treat. On dexamethasone instead prednisone currently. Pain management per neurology section Access -Utilize peripheral IV. Central line if indicated Prophylaxis -GI -pantoprazole -DVT -SCD/holding pharmacological prophylaxis in light of brain mass. Initially when okay with neurosurgery Level 2 follow-up Aristeo Reed MD Sep 01, 2017 10:51
[2017-09-01] MEDS: AZITHROMYCIN INJ 500 MG in SODIUM CHLOR 0.9% 250 ML INJ 250 ML IV SCH (11:52)
[2017-09-01] MEDS ORDERED: DIATRIZOATE MEGLUM/DIATRIZOATE SOD 9 ML CUP PO ONE (12:00)
[2017-09-01 13:35] LABS: HEMATOCRIT 37.1 % (39.0-51.0); HEMOGLOBIN 12.8 GM/DL (13.0-17.0); MEAN CELL VOLUME 95.8 FL (80.0-100.0); MEAN CORPUSCULAR HGB CONC 34.5 % (32.0-36.0); MEAN PLATELET VOLUME 7.2 FL (7.0-11.0); PLATELET COUNT 293 TH/MM3 (150-450); RED BLOOD COUNT 3.87 MIL/MM3 (4.50-5.90); RED CELL DISTRIBUTION WIDTH 12.9 % (11.6-17.2); WHITE BLOOD COUNT 16.2 TH/MM3 (4.0-11.0)
[2017-09-01 13:48] LABS: BICARBONATE 27.2 MEQ/L (21.0-32.0); CREATININE 0.85 MG/DL (0.60-1.30)
--- NOTE | 2017-09-01 13:58 | EKG ---
Date Performed: 08/31/2017 Time Performed: 16:50:46 PTAGE: 66 years EKG: Sinus rhythm WITH OCCASIONAL SUPRAVENTRICULAR PREMATURE COMPLEXES POSSIBLE RIGHT VENTRICULAR CONDUCTION DELAY LEF T ANTERIOR FASCICULAR BLOCK POSSIBLE LATERAL MYOCARDIAL INFARCTION , OF INDETERMINATE AGE ABNORMAL EC G NO PREVIOUS TRACING DOCTOR: Dannie Burnett Interpretating Date/Time 09/01/2017 13:57:15
--- NOTE | 2017-09-01 15:18 | HHI.NSPN ---
(Angelo Kinney) History Chief Complaint: None (Angelo Kinney) Interval History 66-year-old right-handed male with a two-week history of confusion with difficulty with speech and generalized weakness. Patient and also relates six-month history of right leg weakness and especially when he is driving he notices right leg getting weak and numb. Denies any headache or any nausea or vomiting. Denies any incontinence. His appetite has been poor and his loss weight over the past several months. Given worsening speech and confusion he was taken to [facility] in [place] and CT scan head without contrast obtained reveals a 5.1 cm cystic mass in the left frontal lobe with surrounding vasogenic edema and mass effect. He is transferred to [facility] for further management. 08/31/17: Pt awake and alert. He has some confusion but follows simple commands well. He has some expressive aphasia. He has had complains of numbness in right lower leg which he states is improved today. 09/01: The patient is awake and alert sitting up in bed watching TV and visiting with his . He is confused as to place and time. He is moving all extremities spontaneously and purposefully and there are no sensorimotor deficits noted. (Angelo Kinney) Exam Results 08/30/17 08/30/17 08/31/17 08/31/17 09/01/17 09/01/17 06:00 18:00 06:00 18:00 06:00 18:00 Intake Total 180 ml 1410 ml 200 ml 100 ml Output Total 800 ml 950 ml Balance -620 ml 460 ml 200 ml 100 ml Intake Oral 180 ml 1060 ml IV Total 350 ml 200 ml 100 ml Output Urine Total 800 ml 950 ml Stool Total 0 ml 0 ml Vital Signs Date Time Temp Pulse Resp B/P (MAP) Pulse Ox O2 Delivery O2 Flow Rate FiO2 09/01/17 12:00 97.7 60 15 96/52 (67) 100 09/01/17 08:00 97.8 66 20 111/69 (83) 97 09/01/17 06:00 56 09/01/17 04:00 97.9 58 15 92/52 (65) 97 09/01/17 04:00 58 09/01/17 02:00 63 09/01/17 00:00 76 09/01/17 00:00 98.0 76 19 96/53 (67) 97 08/31/17 22:00 63 08/31/17 20:03 97 21 08/31/17 20:00 82 08/31/17 20:00 98.2 82 21 94/54 (67) 98 08/31/17 18:00 86 08/31/17 16:00 98.1 76 21 99/56 (70) 96 08/31/17 16:00 76 08/31/17 14:00 74 08/31/17 12:00 98.4 86 26 103/59 (74) 96 08/31/17 12:00 86 08/31/17 10:00 78 08/31/17 08:00 76 08/31/17 07:41 97 08/31/17 07:00 97.9 80 20 99/56 (70) 96 08/31/17 06:00 82 08/31/17 04:00 83 08/31/17 02:00 80 08/31/17 01:02 94 21 08/31/17 00:00 81 08/30/17 22:00 78 08/30/17 21:24 93 08/30/17 20:00 77 (Angelo Kinney) Physical Examination GENERAL: Patient is awake & alert in bed watching TV and visiting w/his . His affect is normal & he readily interacts. No apparent distress. HEENT: Normocephalic, atraumatic. PERRLA 3 mm brisk, EOMI. MMM & pink, tongue midline to protrusion. MUSCULOSKELETAL: HERRERA spontaneously & purposefully w/o difficulty. Extremities NTTP. No evident clubbing or deformity. NEUROLOGICAL: Awake & alert, oriented to person, president & being in a hospital, but not city , state or time. Speech clear & confused. Follows simple commands w/o difficulty. CN II through XII grossly intact. Sensation intact to light touch to all extremities. PERRLA 3 mm brisk, EOMI. Tongue midline to protrusion. Motor strength is 5/5 to all major flexion & extension groups of the extremities. (Angelo Kinney) Lab, Micro, Other Results Recent Impressions Chest X-Ray 08/31/17 0000 Signed Impressions: Service Date/Time: Thursday, August 31, 2017 10:20 - CONCLUSION: 1. Patchy opacity in the left lung base which could represent early pneumonia. 2. Apparent scarring. 3. Status post median sternotomy. Tenzin Carrizales MD Brain MRI 08/31/17 0000 Signed Impressions: Service Date/Time: Thursday, August 31, 2017 11:23 - CONCLUSION: 1. 6 cm rim-enhancing mass in the left frontal lobe with surrounding vasogenic edema and mass effect. No other brain masses identified. Differential diagnosis includes primary brain tumor such as glioma. Cannot exclude metastatic disease. Thuan Mcdaniel MD Laboratory Tests Test 08/31/17 00:14 08/31/17 00:15 08/31/17 06:40 08/31/17 14:15 White Blood Count 3.3 TH/MM3 4.4 TH/MM3 Red Blood Count 4.19 MIL/MM3 4.30 MIL/MM3 Hemoglobin 14.2 GM/DL 14.3 GM/DL Hematocrit 40.2 % 40.7 % Mean Corpuscular Volume 96.0 FL 94.6 FL Mean Corpuscular Hemoglobin 33.9 PG 33.1 PG Mean Corpuscular Hemoglobin Concent 35.4 % 35.0 % Red Cell Distribution Width 12.9 % 12.8 % Platelet Count 289 TH/MM3 317 TH/MM3 Mean Platelet Volume 6.8 FL 6.8 FL Prothrombin Time 11.8 SEC Prothromb Time International Ratio 1.2 RATIO Activated Partial Thromboplast Time 27.2 SEC Blood Urea Nitrogen 6 MG/DL 8 MG/DL Creatinine 0.63 MG/DL 0.69 MG/DL Random Glucose 160 MG/DL 147 MG/DL Total Protein 8.0 GM/DL 8.2 GM/DL Albumin 3.5 GM/DL 3.5 GM/DL Calcium Level 9.4 MG/DL 9.4 MG/DL Phosphorus Level 3.4 MG/DL 4.4 MG/DL Magnesium Level 1.7 MG/DL 1.8 MG/DL Alkaline Phosphatase 109 U/L 115 U/L Aspartate Amino Transf (AST/SGOT) 17 U/L 20 U/L Alanine Aminotransferase (ALT/SGPT) 23 U/L 25 U/L Total Bilirubin 0.4 MG/DL 0.5 MG/DL Sodium Level 134 MEQ/L 135 MEQ/L Potassium Level 4.3 MEQ/L 4.0 MEQ/L Chloride Level 101 MEQ/L 100 MEQ/L Carbon Dioxide Level 26.0 MEQ/L 23.3 MEQ/L Anion Gap 7 MEQ/L 12 MEQ/L Estimat Glomerular Filtration Rate 127 ML/MIN 114 ML/MIN Nasal Screen MRSA (PCR) MRSA NOT DETECTED Neutrophils (%) (Auto) 81.9 % Lymphocytes (%) (Auto) 16.8 % Monocytes (%) (Auto) 1.1 % Eosinophils (%) (Auto) 0.0 % Basophils (%) (Auto) 0.2 % Neutrophils # (Auto) 3.6 TH/MM3 Lymphocytes # (Auto) 0.7 TH/MM3 Monocytes # (Auto) 0.1 TH/MM3 Eosinophils # (Auto) 0.0 TH/MM3 Basophils # (Auto) 0.0 TH/MM3 CBC Comment DIFF FINAL Differential Comment Urine Color YELLOW Urine Turbidity CLEAR Urine pH 6.0 Urine Specific [place] 1.014 Urine Protein NEG mg/dL Urine Glucose (UA) NEG mg/dL Urine Ketones TRACE mg/dL Urine Occult Blood NEG Urine Nitrite NEG Urine Bilirubin NEG Urine Urobilinogen LESS THAN 2.0 MG/DL Urine Leukocyte Esterase NEG Urine Squamous Epithelial Cells <1 /hpf Urine Mucus FEW /lpf Microscopic Urinalysis Comment CATH-CULT NOT IND Test 09/01/17 12:35 White Blood Count 16.2 TH/MM3 Red Blood Count 3.87 MIL/MM3 Hemoglobin 12.8 GM/DL Hematocrit 37.1 % Mean Corpuscular Volume 95.8 FL Mean Corpuscular Hemoglobin 33.0 PG Mean Corpuscular Hemoglobin Concent 34.5 % Red Cell Distribution Width 12.9 % Platelet Count 293 TH/MM3 Mean Platelet Volume 7.2 FL Blood Urea Nitrogen 15 MG/DL Creatinine 0.85 MG/DL Random Glucose 98 MG/DL Calcium Level 9.0 MG/DL Sodium Level 137 MEQ/L Potassium Level 3.7 MEQ/L Chloride Level 103 MEQ/L Carbon Dioxide Level 27.2 MEQ/L Anion Gap 7 MEQ/L Estimat Glomerular Filtration Rate 90 ML/MIN (Angelo Kinney) Medical Decision Making Impression and Plan Impression: 66-year-old gentleman with a large left frontal cystic mass with surrounding mass effect and edema. Differential diagnosis includes a metastasis as well as a primary lung mass along with the infectious inflammatory etiologies. The patient is doing well and remains neurologically stable. SBP mostly in the 90s. Intermittent bradycardia. Reviewed labs today. Leukocytosis, most likely r/t Decadron. Drop in haemoglobin level. Sodium 137. MRI brain demonstrates 6 cm rim-enhancing mass to the left front lobe w/surrounding vasogenic edema & mass effect. Plan: Systemic workup with a CT of the chest, abdomen and pelvis to rule out systemic primary or metastatic disease. Continue with Decadron Continue with PT/OT/Speech therapy. Tentatively scheduled for Sunday for surgery. (Angelo Kinney) Attending Statement The exam, history, and the medical decision-making described in the above note were completed with the assistance of the mid-level provider. I reviewed and agree with the findings presented. I attest that I had a [id number] encounter with the patient on the same day, and personally performed and documented my assessment and findings in the medical record. No significant complaints. No headache. Awake and alert Moves all extremities well to command Last 48 hours Impressions Chest X-Ray 08/31/17 0000 Signed Impressions: Service Date/Time: Thursday, August 31, 2017 10:20 - CONCLUSION: 1. Patchy opacity in the left lung base which could represent early pneumonia. 2. Apparent scarring. 3. Status post median sternotomy. Tenzin Carrizales MD Chest CT 08/31/17 0000 Signed Impressions: Service Date/Time: Friday, September 01, 2017 17:17 - CONCLUSION: 1. Infiltrating endobronchial lesion in the left upper lobe bronchus with luminal irregularity and abnormal surrounding soft tissue in the left hilum. Enlarged subcarinal lymph node. Findings most characteristic of malignancy. There is also some lingular atelectasis distally as well as lingular bronchiectasis. 2. Fibrotic changes in the lungs predominantly at the bases and lung periphery without significant honeycombing. Mild to moderate emphysema. Thuan Mcdaniel MD Brain MRI 08/31/17 0000 Signed Impressions: Service Date/Time: Thursday, August 31, 2017 11:23 - CONCLUSION: 1. 6 cm rim-enhancing mass in the left frontal lobe with surrounding vasogenic edema and mass effect. No other brain masses identified. Differential diagnosis includes primary brain tumor such as glioma. Cannot exclude metastatic disease. Thuan Mcdaniel MD Abdomen/Pelvis CT 08/31/17 0000 Signed Impressions: Service Date/Time: Sunday, September 01, 2017 17:17 - CONCLUSION: 1. Basilar fibrotic changes in the lungs with bronchiectasis in the lingula. 2. Severe coronary artery disease. 3. No acute findings within the abdomen or pelvis. Mild constipation. No mass or adenopathy identified. Thuan Mcdaniel MD CT scan chest with left upper lobe mass. Discussed with patient Anticipate surgery Sunday for resection left frontal lobe mass. (Jd Wilson MD) Angelo Kinney Sep 01, 2017 15:18 Jd Wilson MD Sep 01, 2017 20:49
[2017-09-01] MEDS ORDERED: IOHEXOL 350 MG/ML 10 ML VIAL (for RAD DIAG) IVCONTRAST ONE (17:25)
--- NOTE | 2017-09-01 17:40 | RADRPT ---
EXAM DATE/TIME: 09/01/2017 17:17 [facility] COMPARISON: No previous studies available for comparison. INDICATIONS : Brain mass. Rule out metastases. IV CONTRAST: 96 cc Omnipaque 350 (iohexol) IV ; Cumulative dose for multiple exams. ORAL CONTRAST: Prescribed oral contrast ingested. RADIATION DOSE: 9.59 CTDIvol (mGy) ; Combined studies - Thorax/Abdomen/Pelvis MEDICAL HISTORY : Cardiovascular disease. Chronic obstructive pulmonary disease. Rheumatoid arthritis. SURGICAL HISTORY : CABG Appendectomy. ENCOUNTER: Initial ACUITY: 1 day PAIN SCALE: 0/10 LOCATION: abdomen/pelvis TECHNIQUE: Volumetric scanning of the abdomen and pelvis was performed. Using automated exposure control and ad justment of the mA and/or kV according to patient size, radiation dose was kept as low as reasonably achievable to obtain optimal diagnostic quality images. DICOM format image data is available electro nically for review and comparison. FINDINGS: Basilar fibrotic changes noted in the lungs. There is cylindrical bronchiectasis in the lingula. No p leural or pericardial effusion. There is cardiomegaly with severe coronary artery calcifications. No acute findings in the liver, spl een, adrenals, kidneys or pancreas. No calcified gallstones. No biliary ductal dilatation. No pelvic masses or free fluid. There is mild constipation. CONCLUSION: 1. Basilar fibrotic changes in the lungs with bronchiectasis in the lingula. 2. Severe coronary artery disease. 3. No acute findings within the abdomen or pelvis. Mild constipation. No mass or adenopathy identifie dFabrizio Mcdaniel MD on September 01, 2017 at 17:34 Board Certified Radiologist. This report was verified electronically.
--- NOTE | 2017-09-01 17:49 | RADRPT ---
EXAM DATE/TIME: 09/01/2017 17:17 [facility] COMPARISON: No previous studies available for comparison. INDICATIONS : Brain mass, rule out metastatic disease. IV CONTRAST: 96 cc Omnipaque 350 (iohexol) IV ; Cumulative dose for multiple exams. RADIATION DOSE: 9.59 CTDIvol (mGy) ; Combined studies - Thorax/Abdomen/Pelvis MEDICAL HISTORY : Cardiovascular disease. Chronic obstructive pulmonary disease. Rheumatoid arthritis. SURGICAL HISTORY : CABG Appendectomy. ENCOUNTER: Initial ACUITY: 1 day PAIN SCALE: 0/10 LOCATION: chest TECHNIQUE: Volumetric scanning of the chest was performed. Using automated exposure control and adjustment of t he mA and/or kV according to patient size, radiation dose was kept as low as reasonably achievable to obtain optimal diagnostic quality images. DICOM format image data is available electronically for review and comparison. Follow-up recommendations for detected pulmonary nodules are based at a minimum on nodule size and pa tient risk factors according to Fleischner Society Guidelines. FINDINGS: There does appear to be an infiltrating endobronchial lesion in the left upper lobe bronchus with adj acent left hilar adenopathy and subcarinal adenopathy measuring up to 1.8 cm in short axis diameter. There is some partial atelectasis of the lingular segment and there is bronchiectasis in the lingula as well. There are also underlying changes of pulmonary fibrosis. Post median sternotomy. Severe coronary calcifications. Ventricular calcifications along the lateral wall probably from prior infarction. There is mild emphysema. CONCLUSION: 1. Infiltrating endobronchial lesion in the left upper lobe bronchus with luminal irregularity and ab normal surrounding soft tissue in the left hilum. Enlarged subcarinal lymph node. Findings most ryland cteristic of malignancy. There is also some lingular atelectasis distally as well as lingular bronchi ectasis. 2. Fibrotic changes in the lungs predominantly at the bases and lung periphery without significant ho neycombing. Mild to moderate emphysema. Thuan Mcdaniel MD on September 01, 2017 at 17:38 Board Certified Radiologist. This report was verified electronically.
[2017-09-01] MEDS: ATORVASTATIN 80 MG TAB PO SCH (21:20)
[2017-09-02] VITALS (9 sets, daily range): BP systolic 96–111; BP diastolic 52–59; PULSE 1–71; RESP 1–21; TEMP 97.4–98; O2SAT 95–100
[2017-09-02] MEDS: PIPERACIL-TAZO 4.5 GM PREMIX 100 ML IV SCH ×4 (00:07→19:51)
[2017-09-02] MEDS: RESP: ALBUTEROL 2.5 MG/IPRATROPIUM 0.5 MG NEB (SCH) NEB ×6 (03:01→23:31)
[2017-09-02] MEDS: DEXAMETHASONE SOD PHOS 4 MG/ML VIAL IV PUSH SCH ×4 (03:35→19:54)
[2017-09-02 05:21] LABS: AUTOMATED NEUTROPHIL # 11.3 TH/MM3 (1.8-7.7); BASOPHIL % 0.1 % (0.0-2.0); HEMATOCRIT 39.5 % (39.0-51.0); HEMOGLOBIN 13.8 GM/DL (13.0-17.0); LYMPH % 6.1 % (9.0-44.0); LYMPHOCYTE # 0.8 TH/MM3 (1.0-4.8); MEAN CORPUSCULAR HEMOGLOBIN 33.6 PG (27.0-34.0); MEAN PLATELET VOLUME 7.5 FL (7.0-11.0); MONO % 4.5 % (0.0-8.0); MONOCYTE # 0.6 TH/MM3 (0-0.9); NEUT % 89.3 % (16.0-70.0); PLATELET COUNT 291 TH/MM3 (150-450); RED BLOOD COUNT 4.12 MIL/MM3 (4.50-5.90); RED CELL DISTRIBUTION WIDTH 12.9 % (11.6-17.2); WHITE BLOOD COUNT 12.6 TH/MM3 (4.0-11.0)
[2017-09-02 05:49] LABS: ALBUMIN 3.4 GM/DL (3.4-5.0); ALT (GPT) 16 U/L (12-78); AST (GOT) 11 U/L (15-37); BICARBONATE 27.9 MEQ/L (21.0-32.0); BLOOD UREA NITROGEN 13 MG/DL (7-18); CALCIUM 9.1 MG/DL (8.5-10.1); CHLORIDE 103 MEQ/L (98-107); CREATININE 0.75 MG/DL (0.60-1.30); GLOMERULAR FILTRATION RATE 104 ML/MIN (>89); GLUCOSE,RANDOM 120 MG/DL (74-106); MAGNESIUM 2.4 MG/DL (1.5-2.5); SODIUM (NA) 137 MEQ/L (136-145)
[2017-09-02 05:57] LABS: ALKALINE PHOSPHATASE 78 U/L (45-117); PHOSPHORUS 2.4 MG/DL (2.5-4.9); TOTAL BILIRUBIN ADULT 0.4 MG/DL (0.2-1.0); TOTAL PROTEIN 7.4 GM/DL (6.4-8.2)
[2017-09-02] MEDS: INSULIN ASPART SUPPLEMENTAL SCALE SQ SCH ×4 (08:00→20:02)
[2017-09-02] MEDS: SODIUM CHLORIDE 0.9% FLUSH 10 ML FLUSH IV FLUSH SCH ×2 (08:52→19:54)
[2017-09-02] MEDS: levETIRAcetam 500 MG TAB PO SCH ×2 (08:53→19:54)
[2017-09-02] MEDS: PANTOPRAZOLE SOD 40 MG DELAYED RELEASE TAB PO SCH (08:54)
[2017-09-02] MEDS: LISINOPRIL 10 MG TAB PO SCH (08:54)
[2017-09-02] MEDS: CARVEDILOL 12.5 MG TAB PO SCH ×2 (08:54→19:54)
[2017-09-02] MEDS: DOCUSATE SODIUM 50 MG/SENNA 8.6 MG TAB PO SCH ×2 (08:54→19:54)
[2017-09-02] MEDS: SPIRONOLACTONE 25 MG TAB PO SCH (08:54)
[2017-09-02] MEDS: BUDESONIDE-FORMOTEROL 160/4.5 MCG INHALER INH SCH ×2 (09:00→19:55)
[2017-09-02] MEDS: AZITHROMYCIN INJ 500 MG in SODIUM CHLOR 0.9% 250 ML INJ 250 ML IV SCH (12:18)
--- NOTE | 2017-09-02 13:28 | HHI.CCPN ---
Subjective Remarks/Hospital Course 66-year-old right-handed male presented to [facility] with a two- week history of confusion with difficulty with speech and generalized weakness. He also relates six-month history of right leg weakness and especially when he is driving he notices right leg getting weak and numb. Denies any headache or any nausea or vomiting. Denies any incontinence. His appetite has been poor and his loss weight over the past several months. Given worsening speech and confusion he was taken to [facility] in [place] and CT scan head without contrast obtained reveals a 5.1 cm cystic mass in the left frontal lobe with surrounding vasogenic edema and mass effect. He is transferred to [facility] for higher level of care. 08/31: Resting comfortably in chair in no acute distress. Planning for MRI of brain currently. CT chest, abdomen and pelvis ordered we will likely performed tomorrow due to contrast load. No seizure activity. 09/01: Resting in bed in no acute distress. Somewhat confused. Plan for CT chest abdomen pelvis today. Plan for OR on Sunday tentatively with neurosurgery Subjective 09/02: Resting in bed. When asked when he had his CABG she stated "yesterday". On room air. Chronic cough persists. Nonproductive. Plan for OR in a.m. 09/03. Nuclear medicine stress test today prior with history of CABG Objective Vital Signs Date Time Temp Pulse Resp B/P (MAP) Pulse Ox O2 Delivery O2 Flow Rate FiO2 09/02/17 12:00 71 09/02/17 12:00 98.0 1 105/52 (69) 98 09/01/17 19:43 21 Intake and Output 09/02/17 09/02/17 09/03/17 08:00 16:00 00:00 Intake Total 500 ml Output Total 601 ml Balance -101 ml Result Diagram: 09/02/17 0421 09/02/17 0421 Other Results Microbiology Date/Time Source Procedure Growth Status 08/31/17 14:16 Blood Peripheral Aerobic Blood Culture - Preliminary NO GROWTH IN 2 DAYS Resulted 08/31/17 14:16 Blood Peripheral Anaerobic Blood Culture - Preliminary NO GROWTH IN 2 DAYS Resulted 08/31/17 14:20 Nasal Aspirate Influenza Types A,B Antigen (STARLA) - Final NEGATIVE FOR FLU A AND B ANTIGEN.... Complete 08/31/17 14:15 Urine Catheterized Urine Legionella Antigen - Final PRESUMPTIVE NEGATIVE FOR LEGIONELLA P... Complete 08/31/17 14:15 Urine Catheterized Urine Streptococcus pneumoniae Antigen (M - Final PRESUMPTIVE NEGATIVE FOR STREPTOCOCCU... Complete Imaging Last Impressions Chest X-Ray 08/31/17 0000 Signed Impressions: Service Date/Time: Thursday, August 31, 2017 10:20 - CONCLUSION: 1. Patchy opacity in the left lung base which could represent early pneumonia. 2. Apparent scarring. 3. Status post median sternotomy. Tenzin Carrizales MD Chest CT 08/31/17 0000 Signed Impressions: Service Date/Time: Friday, September 01, 2017 17:17 - CONCLUSION: 1. Infiltrating endobronchial lesion in the left upper lobe bronchus with luminal irregularity and abnormal surrounding soft tissue in the left hilum. Enlarged subcarinal lymph node. Findings most characteristic of malignancy. There is also some lingular atelectasis distally as well as lingular bronchiectasis. 2. Fibrotic changes in the lungs predominantly at the bases and lung periphery without significant honeycombing. Mild to moderate emphysema. Thuan Mcdaniel MD Brain MRI 08/31/17 0000 Signed Impressions: Service Date/Time: Thursday, August 31, 2017 11:23 - CONCLUSION: 1. 6 cm rim-enhancing mass in the left frontal lobe with surrounding vasogenic edema and mass effect. No other brain masses identified. Differential diagnosis includes primary brain tumor such as glioma. Cannot exclude metastatic disease. Thuan Mcdaniel MD Abdomen/Pelvis CT 08/31/17 0000 Signed Impressions: Service Date/Time: Friday, September 01, 2017 17:17 - CONCLUSION: 1. Basilar fibrotic changes in the lungs with bronchiectasis in the lingula. 2. Severe coronary artery disease. 3. No acute findings within the abdomen or pelvis. Mild constipation. No mass or adenopathy identified. Thuan Mcdaniel MD Objective Remarks GENERAL: 66-year-old male currently resting in bed in no acute distress SKIN: Warm and dry. No rashes HEAD: Atraumatic. Normocephalic. EYES: Pupils equal round and reactive. Extraocular motions intact. No scleral icterus. No injection or drainage. ENT/neck: No erythema or exudates. No thyromegaly lymphadenopathy. Trachea midline CARDIOVASCULAR: Regular rate and rhythm. S1, S2 no S4. 1/6 systolic murmur. RESPIRATORY: Diminished breath sounds throughout. Positive straight x-ray wheezing. GASTROINTESTINAL: Abdomen soft, non-tender, nondistended. Hypoactive bowel sounds appreciate MUSCULOSKELETAL: Extremities significant peripheral edema. NEUROLOGICAL:. Awake but only oriented to name not location or date; moderate expressive aphasia with the naming and word finding difficulty. Follows simple commands with difficulty with complex commands. Extraocular muscles are intact, pupils are equal, face is symmetric, tongue is midline. He moves all 4 extremities overall good strength. Equivocal right Babinski. 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 Freeman. Plan for OR 09/03 for craniotomy/resection CV: Hypertension Coronary disease status post CABG Dyslipidemia Currently on carvedilol 25 mg p.o. twice daily, amlodipine 10 mg p.o. daily and lisinopril 10 mg p.o. daily for hypertension Continue Spironolactone 25 mg p.o. daily continue Continue atorvastatin 80 mg p.o. daily for dyslipidemia Holding aspirin 81 mg p.o. daily in light of mass Continue dexamethasone 4 mg IV every 6 hours Continue levetiracetam 500 mg p.o. twice daily seizure prophylaxis 2D echo- the left ventricular systolic function is low normal with an estimated ejection fraction in the range of 50-55%. Wall thickness is normal. Normal left ventricular size. Anterior mitral valve leaflet prolapse. Moderate mitral valve regurgitation. There is mild tricuspid valve regurgitation. The estimated pulmonary arterial pressure is 31.3 mmHg. Nuclear medicine stress test today prior to OR Resp: COPD Tobaccoism Possible early left lower lobe infiltrate/pneumonia Nasal cannula to maintain saturations greater than equal to 92% Incentive spirometry while awake Budesonide/formoterol 160/4.5 2 puffs twice daily Albuterol/ipratropium aerosols every 4 hours with albuterol aerosols every [address] thorax revealed infiltrating endobronchial lesions left upper lobe bronchus with luminal irregularity abnormal surrounding soft tissue left hilum. Left hilar adenopathy and subcarinal adenopathy measuring 1.8 cm in diameter. Lingular bronchiectasis. Fibrotic lung changes in the bases bilaterally. Moderate emphysema. Tobacco cessation self-education booklet will be provided GI: Continue regular diet as tolerated Pantoprazole for GI prophylaxis Docusate sodium/senna 1 tablet twice daily for bowel regimen : No indication for Rodriges catheter Endo: Chronic prednisone use 10 milligrams twice daily Hyperglycemia Sliding scale insulin with Novilin R with Accu-Cheks before meals at bedtime to maintain his euglycemia/low regimen Renal: Creatinine currently within normal limits Monitor urine output Accurate I's and O's Heme: Leukocytosis Likely steroid-induced. Recheck in am ID: Possible community acquired pneumonia/left-sided Monitor for infection Start on piperacillin l/tazobactam azithromycin day #4 Blood cultures 2, UA, sputum, urine Legionella pneumococcal antigen/influenza a and B negative today FEN: Hypophosphatemia 15 mmol sodium phosphate IV 1 now. MSK: RA PT evaluate and treat. On dexamethasone instead prednisone currently. Pain management per neurology section Access -Utilize peripheral IV. Central line if indicated Prophylaxis -GI -pantoprazole -DVT -SCD/holding pharmacological prophylaxis in light of brain mass. Initially when okay with neurosurgery Level 2 follow-up Aristeo Reed MD Sep 02, 2017 13:28
[2017-09-02] MEDS ORDERED: REGADENOSON INJ 0.4 MG/5 ML SYR ONE (13:43)
--- NOTE | 2017-09-02 14:44 | HHI.NSPN ---
History Chief Complaint: None Interval History 66-year-old right-handed male with a two-week history of confusion with difficulty with speech and generalized weakness. Patient and also relates six-month history of right leg weakness and especially when he is driving he notices right leg getting weak and numb. Denies any headache or any nausea or vomiting. Denies any incontinence. His appetite has been poor and his loss weight over the past several months. Given worsening speech and confusion he was taken to [facility] in [place] and CT scan head without contrast obtained reveals a 5.1 cm cystic mass in the left frontal lobe with surrounding vasogenic edema and mass effect. He is transferred to [facility] for further management. 08/31/17: Pt awake and alert. He has some confusion but follows simple commands well. He has some expressive aphasia. He has had complains of numbness in right lower leg which he states is improved today. 09/01: The patient is awake and alert sitting up in bed watching TV and visiting with his . He is confused as to place and time. He is moving all extremities spontaneously and purposefully and there are no sensorimotor deficits noted. 09/02: The patient is down for a stress test when this practitioner went to see him initially. He is seen shortly after returning to his room. He says he is doing good and had no complaints. He continues to have confusion. There are no sensorimotor deficits noted upon examination. Exam Results 08/31/17 08/31/17 09/01/17 09/01/17 09/02/17 09/02/17 06:00 18:00 06:00 18:00 06:00 18:00 Intake Total 180 ml 1410 ml 200 ml 100 ml 400 ml 100 ml Output Total 800 ml 950 ml 1626 ml Balance -620 ml 460 ml 200 ml 100 ml -1226 ml 100 ml Intake Oral 180 ml 1060 ml 300 ml IV Total 350 ml 200 ml 100 ml 100 ml 100 ml Output Urine Total 800 ml 950 ml 1625 ml Stool Total 0 ml 0 ml 1 ml Vital Signs Date Time Temp Pulse Resp B/P (MAP) Pulse Ox O2 Delivery O2 Flow Rate FiO2 09/02/17:00 71 09/02/17 12:00 98.0 1 1 105/52 (69) 98 09/02/17 08:00 64 09/02/17 08:00 97.5 64 19 110/54 (72) 99 09/02/17 04:00 62 09/02/17 04:00 97.6 69 18 111/53 (72) 98 09/02/17 02:00 54 09/02/17 00:00 64 09/02/17 00:00 97.7 62 18 101/53 (69) 100 09/01/17 22:00 58 09/01/17 20:00 97.5 62 18 86/51 (63) 100 09/01/17 20:00 62 09/01/17 19:43 97 21 09/01/17 16:00 97.5 59 15 130/60 (83) 95 09/01/17 12:00 97.7 60 15 96/52 (67) 100 09/01/17 08:00 97.8 66 20 111/69 (83) 97 09/01/17 06:00 56 09/01/17 04:00 97.9 58 15 92/52 (65) 97 09/01/17 04:00 58 09/01/17 02:00 63 09/01/17 00:00 76 09/01/17 00:00 98.0 76 19 96/53 (67) 97 08/31/17 22:00 63 08/31/17 20:03 97 21 08/31/17 20:00 82 08/31/17 20:00 98.2 82 21 94/54 (67) 98 08/31/17 18:00 86 08/31/17 16:00 98.1 76 21 99/56 (70) 96 08/31/17 16:00 76 08/31/17 14:00 74 08/31/17 12:00 98.4 86 26 103/59 (74) 96 08/31/17 12:00 86 08/31/17 10:00 78 08/31/17 08:00 76 08/31/17 07:41 97 08/31/17 07:00 97.9 80 20 99/56 (70) 96 08/31/17 06:00 82 08/31/17 04:00 83 08/31/17 02:00 80 08/31/17 01:02 94 21 08/31/17 00:00 81 08/30/17 22:00 78 08/30/17 21:24 93 08/30/17 20:00 77 Physical Examination GENERAL: Patient is asleep in bed but awakens to voice. He is alert after that. His affect is fairly normal & he readily interacts. No apparent distress. HEENT: Normocephalic, atraumatic. PERRLA 3 mm brisk, EOMI. MMM & pink, tongue midline to protrusion. MUSCULOSKELETAL: HERRERA spontaneously & purposefully w/o difficulty. Extremities NTTP. No evident clubbing or deformity. NEUROLOGICAL: Asleep in bed but awakens to voice and alert after that. Oriented to person, president & being in a hospital, but not city, state or time. Speech clear but confused at times. Follows simple commands w/o difficulty. CN II through XII grossly intact. PERRLA 3 mm brisk, EOMI. Tongue midline to protrusion. Sensation intact to light touch to all extremities. Motor strength is 5/5 to all major flexion & extension groups of the extremities. Lab, Micro, Other Results Recent Impressions Chest X-Ray 08/31/17 0000 Signed Impressions: Service Date/Time: Thursday, August 31, 2017 10:20 - CONCLUSION: 1. Patchy opacity in the left lung base which could represent early pneumonia. 2. Apparent scarring. 3. Status post median sternotomy. Tenzin Carrizales MD Chest CT 08/31/17 0000 Signed Impressions: Service Date/Time: Friday, September 01, 2017 17:17 - CONCLUSION: 1. Infiltrating endobronchial lesion in the left upper lobe bronchus with luminal irregularity and abnormal surrounding soft tissue in the left hilum. Enlarged subcarinal lymph node. Findings most characteristic of malignancy. There is also some lingular atelectasis distally as well as lingular bronchiectasis. 2. Fibrotic changes in the lungs predominantly at the bases and lung periphery without significant honeycombing. Mild to moderate emphysema. Thuan Mcdaniel MD Brain MRI 08/31/17 0000 Signed Impressions: Service Date/Time: Thursday, August 31, 2017 11:23 - CONCLUSION: 1. 6 cm rim-enhancing mass in the left frontal lobe with surrounding vasogenic edema and mass effect. No other brain masses identified. Differential diagnosis includes primary brain tumor such as glioma. Cannot exclude metastatic disease. Thuan Mcdaniel MD Abdomen/Pelvis CT 08/31/17 0000 Signed Impressions: Service Date/Time: Friday, September 01, 2017 17:17 - CONCLUSION: 1. Basilar fibrotic changes in the lungs with bronchiectasis in the lingula. 2. Severe coronary artery disease. 3. No acute findings within the abdomen or pelvis. Mild constipation. No mass or adenopathy identified. Thuan Mcdaniel MD Laboratory Tests Test 08/31/17 00:14 08/31/17 00:15 08/31/17 06:40 08/31/17 14:15 White Blood Count 3.3 TH/MM3 4.4 TH/MM3 Red Blood Count 4.19 MIL/MM3 4.30 MIL/MM3 Hemoglobin 14.2 GM/DL 14.3 GM/DL Hematocrit 40.2 % 40.7 % Mean Corpuscular Volume 96.0 FL 94.6 FL Mean Corpuscular Hemoglobin 33.9 PG 33.1 PG Mean Corpuscular Hemoglobin Concent 35.4 % 35.0 % Red Cell Distribution Width 12.9 % 12.8 % Platelet Count 289 TH/MM3 317 TH/MM3 Mean Platelet Volume 6.8 FL 6.8 FL Prothrombin Time 11.8 SEC Prothromb Time International Ratio 1.2 RATIO Activated Partial Thromboplast Time 27.2 SEC Blood Urea Nitrogen 6 MG/DL 8 MG/DL Creatinine 0.63 MG/DL 0.69 MG/DL Random Glucose 160 MG/DL 147 MG/DL Total Protein 8.0 GM/DL 8.2 GM/DL Albumin 3.5 GM/DL 3.5 GM/DL Calcium Level 9.4 MG/DL 9.4 MG/DL Phosphorus Level 3.4 MG/DL 4.4 MG/DL Magnesium Level 1.7 MG/DL 1.8 MG/DL Alkaline Phosphatase 109 U/L 115 U/L Aspartate Amino Transf (AST/SGOT) 17 U/L 20 U/L Alanine Aminotransferase (ALT/SGPT) 23 U/L 25 U/L Total Bilirubin 0.4 MG/DL 0.5 MG/DL Sodium Level 134 MEQ/L 135 MEQ/L Potassium Level 4.3 MEQ/L 4.0 MEQ/L Chloride Level 101 MEQ/L 100 MEQ/L Carbon Dioxide Level 26.0 MEQ/L 23.3 MEQ/L Anion Gap 7 MEQ/L 12 MEQ/L Estimat Glomerular Filtration Rate 127 ML/MIN 114 ML/MIN Nasal Screen MRSA (PCR) MRSA NOT DETECTED Neutrophils (%) (Auto) 81.9 % Lymphocytes (%) (Auto) 16.8 % Monocytes (%) (Auto) 1.1 % Eosinophils (%) (Auto) 0.0 % Basophils (%) (Auto) 0.2 % Neutrophils # (Auto) 3.6 TH/MM3 Lymphocytes # (Auto) 0.7 TH/MM3 Monocytes # (Auto) 0.1 TH/MM3 Eosinophils # (Auto) 0.0 TH/MM3 Basophils # (Auto) 0.0 TH/MM3 CBC Comment DIFF FINAL Differential Comment Urine Color YELLOW Urine Turbidity CLEAR Urine pH 6.0 Urine Specific Emerson 1.014 Urine Protein NEG mg/dL Urine Glucose (UA) NEG mg/dL Urine Ketones TRACE mg/dL Urine Occult Blood NEG Urine Nitrite NEG Urine Bilirubin NEG Urine Urobilinogen LESS THAN 2.0 MG/DL Urine Leukocyte Esterase NEG Urine Squamous Epithelial Cells <1 /hpf Urine Mucus FEW /lpf Microscopic Urinalysis Comment CATH-CULT NOT IND Test 09/01/17 12:35 09/02/17 04:21 White Blood Count 16.2 TH/MM3 12.6 TH/MM3 Red Blood Count 3.87 MIL/MM3 4.12 MIL/MM3 Hemoglobin 12.8 GM/DL 13.8 GM/DL Hematocrit 37.1 % 39.5 % Mean Corpuscular Volume 95.8 FL 96.0 FL Mean Corpuscular Hemoglobin 33.0 PG 33.6 PG Mean Corpuscular Hemoglobin Concent 34.5 % 35.0 % Red Cell Distribution Width 12.9 % 12.9 % Platelet Count 293 TH/MM3 291 TH/MM3 Mean Platelet Volume 7.2 FL 7.5 FL Blood Urea Nitrogen 15 MG/DL 13 MG/DL Creatinine 0.85 MG/DL 0.75 MG/DL Random Glucose 98 MG/DL 120 MG/DL Calcium Level 9.0 MG/DL 9.1 MG/DL Sodium Level 137 MEQ/L 137 MEQ/L Potassium Level 3.7 MEQ/L 3.9 MEQ/L Chloride Level 103 MEQ/L 103 MEQ/L Carbon Dioxide Level 27.2 MEQ/L 27.9 MEQ/L Anion Gap 7 MEQ/L 6 MEQ/L Estimat Glomerular Filtration Rate 90 ML/MIN 104 ML/MIN Neutrophils (%) (Auto) 89.3 % Lymphocytes (%) (Auto) 6.1 % Monocytes (%) (Auto) 4.5 % Eosinophils (%) (Auto) 0.0 % Basophils (%) (Auto) 0.1 % Neutrophils # (Auto) 11.3 TH/MM3 Lymphocytes # (Auto) 0.8 TH/MM3 Monocytes # (Auto) 0.6 TH/MM3 Eosinophils # (Auto) 0.0 TH/MM3 Basophils # (Auto) 0.0 TH/MM3 CBC Comment DIFF FINAL Differential Comment Total Protein 7.4 GM/DL Albumin 3.4 GM/DL Phosphorus Level 2.4 MG/DL Magnesium Level 2.4 MG/DL Alkaline Phosphatase 78 U/L Aspartate Amino Transf (AST/SGOT) 11 U/L Alanine Aminotransferase (ALT/SGPT) 16 U/L Total Bilirubin 0.4 MG/DL Medical Decision Making Impression and Plan Impression: 66-year-old gentleman with a large left frontal cystic mass with surrounding mass effect and edema. Differential diagnosis includes a metastasis as well as a primary lung mass along with the infectious inflammatory etiologies. The patient continues to do well and is stable neurologically Hypotensive in mid 80s yesterday evening. Reviewed labs today. Improvement in leukocytosis. Haemoglobin level WNL. Sodium 137. Hypophosphatemia. MRI brain demonstrates 6 cm rim-enhancing mass to the left front lobe w/surrounding vasogenic edema & mass effect. Plan: Systemic workup with a CT of the chest, abdomen and pelvis to rule out systemic primary or metastatic disease. Continue with Decadron Continue with PT/OT/Speech therapy. Tentatively scheduled for Sunday for surgery. Angelo Kinney Sep 02, 2017 14:44
[2017-09-02] MEDS ORDERED: SODIUM PHOSPHATE INJ 15 MMOL in SODIUM CHLORIDE 0.9% INJ 150 ML IV ONE (15:00)
--- NOTE | 2017-09-02 15:06 | RADRPT ---
EXAM DATE/TIME: 09/02/2017 13:05 [place] COMPARISON: No previous studies available for comparison. INDICATIONS : Preop for surgery. Coronary artery disease. DOSE: 25.4 mCi Tc99m Myoview at stress. 8.3 mCi Tc99m Myoview at rest. 0.4 mg Lexiscan STRESS SYMPTOMS: None noted. EJECTION FRACTION: 48% MEDICAL HISTORY : Cirrhosis. SURGICAL HISTORY : CABG Coronary artery stent. ENCOUNTER: Initial ACUITY: 1 day PAIN SCALE: 0/10 LOCATION: chest TECHNIQUE: The patient underwent pharmacologic stress with infusion of prescribed dose. Continuous ECG tracing was monitored during stress. Gated SPECT imaging was performed after stress and conventional SPECT i maging was performed at rest. The examination was performed on a SPECT/CT scanner, both attenuation and non-corrected datasets were reviewed. FINDINGS: DISTRIBUTION: The maximum perfused segment at stress is in the anterior wall. PERFUSION STUDY: A large predominantly fixed perfusion defect is identified in the lateral wall extending to the apex. There is minimal surrounding reperfusion. There is mild hypoperfusion in the inferior wall which is unchanged between stress and rest. There are no discrete reversible perfusion abnormalities. GATED STUDY: Bulging of the lateral ventricular wall is noted. There is decreased ejection fraction measuring 48%. CONCLUSION: 1. Predominantly fixed lateral wall perfusion abnormality with mild surrounding reperfusion at rest c haracteristics of a myocardial infarct with associated ventricular dilatation. 2. Decreased ejection fraction measuring 48%. 3. No evidence of significant stress-induced reversible perfusion abnormalities. RISK CATEGORY: Intermediate (1-3% Annual Mortality Rate) Gael Wong MD on September 02, 2017 at 14:58 Board Certified Radiologist. This report was verified electronically.
[2017-09-02] MEDS: ATORVASTATIN 80 MG TAB PO SCH (19:53)
[2017-09-03] VITALS (9 sets, daily range): BP systolic 83–131; BP diastolic 50–67; PULSE 50–71; RESP 15–20; TEMP 96.4–98; O2SAT 16–100
[2017-09-03] MEDS: DEXAMETHASONE SOD PHOS 4 MG/ML VIAL IV PUSH SCH ×4 (03:21→20:03)
[2017-09-03] MEDS: RESP: ALBUTEROL 2.5 MG/IPRATROPIUM 0.5 MG NEB (SCH) NEB ×3 (03:34→11:34)
[2017-09-03] MEDS ORDERED: LACTATED RINGER'S 1000 ML IV PRN (04:45)
[2017-09-03] MEDS ORDERED: POVIDONE IODINE 5% (ANTISEPSIS KIT) 4 APPLICATIONS EACH NARE PRN (04:45)
[2017-09-03] MEDS ORDERED: SODIUM CHLORID 0.9% 500 ML IV PRN (04:45)
[2017-09-03] MEDS ORDERED: CHLORHEXIDINE GLUCONATE 2 % 1 PACK (2 CLOTHS) TOPICAL PRN (04:45)
[2017-09-03] MEDS: PIPERACIL-TAZO 4.5 GM PREMIX 100 ML IV SCH ×4 (06:15→20:03)
--- NOTE | 2017-09-03 07:54 | PD.CONS ---
HPI Consult Requested By Primary Care Physician Unknown History of Present Illness 66-year-old male with past medical history of CAD s/p CABG 2 years ago in [place], COPD, RA who presented with confusion, speech difficulties, and lower extremity weakness. The patient was found to have a 5-6 centimeter cystic mass in the left frontal lobe with surrounding vasogenic edema and mass-effect. He was transferred to [facility] for neurosurgical evaluation. Neurosurgery has evaluated the patient and is planning on surgery today. A Lexiscan was done for preoperative clearance which showed no evidence of stress- induced reversible perfusion abnormalities, however was read with intermediate risk. Echocardiogram with moderate MR, otherwise unremarkable with normal EF. His EKG showed occasional supraventricular premature complexes. Patient seen with family at bedside, as he remains pleasant but slightly confused. They report the patient had a history of CABG 2 years ago and since then has been doing well and her mutuel clerk recently decreased the patient to only annual visits. Since his surgery he has not had any issues with chest pain. Today the patient denies any chest pain, shortness of breath, or palpitations. Review of Systems ROS Limitations: Altered Mental Status Past Family Social History Allergies: Coded Allergies: No Known Allergies (Unverified , 08/30/17) Past Medical History Coronary artery disease with myocardial infarction Rheumatoid arthritis 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 Past Surgical History Coronary artery bypass grafting 2 years ago, denies any cardiac interventions since Reported Medications Reported Meds & Active Scripts Active Reported Ventolin Hfa 18 GM Inh (Albuterol Sulfate) 90 Mcg/Act Aer 1 Puff INH QID Aldactone (Spironolactone) 25 Mg Tab 25 Mg PO DAILY Prednisone 1 Mg Tab 1 Mg PO BID Lisinopril 10 Mg Tab 10 Mg PO DAILY Coreg (Carvedilol) 25 Mg Tab 25 Mg PO BID Atorvastatin (Atorvastatin Calcium) 80 Mg Tab 80 Mg PO HS Aspirin EC (Aspirin) 81 Mg Tabdr 81 Mg PO DAILY Norvasc (Amlodipine Besylate) 10 Mg Tab 10 Mg PO DAILY Active Ordered Medications Current Medications Medications (Trade) Dose Ordered Sig/Aisha Route Start Time Stop Time Status Last Admin (NS Flush) 2 ml UNSCH PRN IV FLUSH 08/30/17 20:00 (NS Flush) 2 ml BID IV FLUSH 08/30/17 21:00 09/02/17 19:54 (Keppra) 500 mg Q12H PO 08/30/17 21:00 09/02/17 19:54 (Ativan Inj) 1 mg Q1H PRN IV PUSH 08/30/17 20:00 (Mag-Al Plus Susp Liq) 30 ml Q6H PRN PO 08/30/17 20:00 (Protonix) 40 mg DAILY PO 08/31/17 09:00 09/02/17 08:54 (Zofran Inj) 4 mg Q6H PRN IV PUSH 08/30/17 20:00 Calcium Gluconate 1 gm/Sodium Chloride 110 ml @ 110 mls/hr UNSCH PRN IV 08/30/17 20:00 Potassium Chloride 100 ml @ 50 mls/hr UNSCH PRN IV 08/30/17 20:00 Magnesium Sulfate 2 gm/Sodium Chloride 104 ml @ 100 mls/hr UNSCH PRN IV 08/30/17 20:00 ([place] 10-325 Mg) 1 tab Q4H PRN PO 08/30/17 20:00 ([place] 10-325 Mg) 2 tab Q4H PRN PO 08/30/17 20:00 (Decadron Inj) 4 mg Q6H IV PUSH 08/30/17 21:00 09/03/17 03:21 (Trandate Inj) 10 mg Q1H PRN IV PUSH 08/30/17 20:00 (Catapres) 0.1 mg Q6H PRN PO 08/30/17 20:00 (Kati-Colace) 1 tab BID PO 08/30/17 21:00 09/02/17 19:54 (Milk Of Magnesia Liq) 30 ml Q12H PRN PO 08/30/17 20:00 (Senokot) 17.2 mg Q12H PRN PO 08/30/17 20:00 (Dulcolax Supp) 10 mg DAILY PRN RECTAL 08/30/17 20:00 (Lactulose Liq) 30 ml DAILY PRN PO 08/30/17 20:00 Nicardipine HCl 25 mg/Sodium Chloride 250 ml @ 50 mls/hr TITRATE PRN IV 08/30/17 20:00 (Duoneb Neb) 1 ampule Q4HR NEB NEB 08/31/17 00:00 09/03/17 07:34 (Norvasc) 10 mg DAILY PO 3/30/18 09:00 09/02/17 08:54 (Lipitor) 80 mg HS PO 08/31/17 21:00 09/02/17 19:53 (Coreg) 25 mg BID PO 08/31/17 09:00 09/02/17 19:54 (Prinivil) 10 mg DAILY PO 08/31/17 09:00 09/02/17 08:54 (Aldactone) 25 mg DAILY PO 08/31/17 09:00 09/02/17 08:54 (Albuterol Neb) 2.5 mg Q2HR NEB PRN NEB 08/31/17 10:15 (D50w (Vial) Inj) 50 ml UNSCH PRN IV PUSH 08/31/17 10:15 (Glucagon Inj) 1 mg UNSCH PRN OTHER 08/31/17 10:15 (NovoLOG SUPPLEMENTAL SCALE) 1 ACHS SLIDING SCALE SQ 08/31/17 12:00 09/02/17 20:02 (Symbicort 160-4.5 Mcg Inh) 2 puff Q12HR INH 08/31/17 21:00 09/02/17 19:55 Azithromycin 500 mg/Sodium Chloride 250 ml @ 250 mls/hr Q24H IV 08/31/17 12:00 09/02/17 12:18 Piperacillin Sod/ Tazobactam Sod 100 ml @ 200 mls/hr Q6H IV 08/31/17 13:00 09/03/17 06:15 Vancomycin HCl 1000 mg/Sodium Chloride 250 ml @ 250 mls/hr [employer]UC[employer] IV 09/03/17 08:00 Lactated Ringer's 1,000 ml @ 30 mls/hr Q24H PRN IV 09/03/17 04:45 09/06/17 04:44 Sodium Chloride 500 ml @ 30 mls/hr [id number] PRN IV 09/03/17 04:45 09/06/17 04:44 (Betadine 5% Antisepsis Kit) 1 applic [employer] PRN EACH NARE 09/03/17 04:45 09/06/17 04:44 (Chlorhexidine 2% Cloth) 3 pack [employer] PRN TOPICAL 09/03/17 04:45 09/06/17 04:44 Family History Father had lung cancer otherwise unremarkable Social History He smokes over a pack a day of cigarettes and drinks alcohol on weekends. Denies illicit drug abuse He is and his and daughter are here with him. Physical Exam Vital Signs Vital Signs Date Time Temp Pulse Resp B/P (MAP) Pulse Ox O2 Delivery O2 Flow Rate FiO2 09/03/17 03:48 97.6 53 18 89/52 (64) 96 09/03/17 01:26 87/50 (62) 09/03/17 00:39 98.0 56 18 83/50 (61) 95 09/02/17 23:31 98 21 09/02/17 20:31 97.8 62 20 98/57 (71) 95 09/02/17 17:43 58 20 110/57 (74) 98 09/02/17 16:00 64 09/02/17 16:00 97.4 64 21 96/59 (71) 99 09/02/17 12:00 71 09/02/17 12:00 98.0 71 21 105/52 (69) 98 09/02/17 08:00 64 09/02/17 08:00 97.5 64 19 110/54 (72) 99 Physical Exam GENERAL: Well-developed well-nourished. In no acute distress. NECK: No carotid bruits. No JVD. CARDIOVASCULAR: Regular rate and rhythm. No murmur appreciated. RESPIRATORY: No accessory muscle use. Clear to auscultation. Breath sounds equal bilaterally. MUSCULOSKELETAL: No clubbing or cyanosis. No edema. NEUROLOGICAL: Awake and alert. Confused. Normal speech. Laboratory Date/Time Source Procedure Growth Status 08/31/17 14:16 Blood Peripheral Aerobic Blood Culture - Preliminary NO GROWTH IN 2 DAYS Resulted 08/31/17 14:16 Blood Peripheral Anaerobic Blood Culture - Preliminary NO GROWTH IN 2 DAYS Resulted 08/31/17 14:20 Nasal Aspirate Influenza Types A,B Antigen (STARLA) - Final NEGATIVE FOR FLU A AND B ANTIGEN.... Complete 08/31/17 14:15 Urine Catheterized Urine Legionella Antigen - Final PRESUMPTIVE NEGATIVE FOR LEGIONELLA P... Complete 08/31/17 14:15 Urine Catheterized Urine Streptococcus pneumoniae Antigen (M - Final PRESUMPTIVE NEGATIVE FOR STREPTOCOCCU... Complete Result Diagram: 09/02/17 0421 09/02/17 0421 Imaging Last Impressions Myocardial Perfusion Scan Nuc Med 09/02/17 0000 Signed Impressions: Service Date/Time: Saturday, September 02, 2017 13:05 - CONCLUSION: 1. Predominantly fixed lateral wall perfusion abnormality with mild surrounding reperfusion at rest characteristics of a myocardial infarct with associated ventricular dilatation. 2. Decreased ejection fraction measuring 48%%. 3. No evidence of significant stress-induced reversible perfusion abnormalities. RISK CATEGORY: Intermediate (1-3%% Annual Mortality Rate) Gael Wong MD Chest X-Ray 08/31/17 Signed Impressions: Service Date/Time: Thursday, August 31, 2017 10:20 - CONCLUSION: 1. Patchy opacity in the left lung base which could represent early pneumonia. 2. Apparent scarring. 3. Status post median sternotomy. Tenzin Carrizales MD Chest CT 08/31/17 Signed Impressions: Service Date/Time: Friday, September 01, 2017 17:17 - CONCLUSION: 1. Infiltrating endobronchial lesion in the left upper lobe bronchus with luminal irregularity and abnormal surrounding soft tissue in the left hilum. Enlarged subcarinal lymph node. Findings most characteristic of malignancy. There is also some lingular atelectasis distally as well as lingular bronchiectasis. 2. Fibrotic changes in the lungs predominantly at the bases and lung periphery without significant honeycombing. Mild to moderate emphysema. Thuan Mcdaniel MD Brain MRI 08/31/17 Signed Impressions: Service Date/Time: Thursday, August 31, 2017 11:23 - CONCLUSION: 1. 6 cm rim-enhancing mass in the left frontal lobe with surrounding vasogenic edema and mass effect. No other brain masses identified. Differential diagnosis includes primary brain tumor such as glioma. Cannot exclude metastatic disease. Thuan Mcdaniel MD Abdomen/Pelvis CT 08/31/17 Signed Impressions: Service Date/Time: Friday, September 01, 2017 17:17 - CONCLUSION: 1. Basilar fibrotic changes in the lungs with bronchiectasis in the lingula. 2. Severe coronary artery disease. 3. No acute findings within the abdomen or pelvis. Mild constipation. No mass or adenopathy identified. Thuan Mcdaniel MD Assessment and Plan Assessment and Plan 66-year-old male with past medical history of CAD s/p CABG 2 years ago in [place], COPD, RA who presented with confusion, speech difficulties, and lower extremity weakness. A Lexiscan nuclear stress test was performed which showed no reversible defects to suggest ischemia, however read as intermediate risk and thus we are consulted for preoperative evaluation. CAD: Patient seems to have been doing well from a cardiac standpoint since his CABG 2 years ago. Lexiscan with no reperfusion defects to suggest ischemia. EF on Lexiscan was read as slightly decreased at 48%, although EF normal on echocardiogram. Patient is at acceptable cardiovascular risk to proceed with surgery today. We will sign off at this time. Please feel free to call with any questions. Efren Geronimo Sep 03, 2017 07:54
[2017-09-03] MEDS ORDERED: VANCOMYCIN INJ 1,000 MG in SODIUM CHLOR 0.9% 250 ML INJ 250 ML IV SCH ×2 (08:00→13:30)
[2017-09-03] MEDS: INSULIN ASPART SUPPLEMENTAL SCALE SQ SCH ×3 (08:00→21:00)
[2017-09-03] MEDS: BUDESONIDE-FORMOTEROL 160/4.5 MCG INHALER INH SCH ×2 (08:49→21:00)
[2017-09-03] MEDS: levETIRAcetam 500 MG TAB PO SCH ×2 (08:59→20:04)
[2017-09-03 09:00] LABS: HEMATOCRIT 42.8 % (39.0-51.0); HEMOGLOBIN 14.8 GM/DL (13.0-17.0); MEAN CELL VOLUME 96.6 FL (80.0-100.0); MEAN CORPUSCULAR HEMOGLOBIN 33.4 PG (27.0-34.0); MEAN CORPUSCULAR HGB CONC 34.5 % (32.0-36.0); MEAN PLATELET VOLUME 6.7 FL (7.0-11.0); PLATELET COUNT 296 TH/MM3 (150-450); RED BLOOD COUNT 4.43 MIL/MM3 (4.50-5.90); RED CELL DISTRIBUTION WIDTH 12.7 % (11.6-17.2); WHITE BLOOD COUNT 10.2 TH/MM3 (4.0-11.0)
[2017-09-03] MEDS: DOCUSATE SODIUM 50 MG/SENNA 8.6 MG TAB PO SCH ×2 (09:00→20:04)
[2017-09-03] MEDS: CARVEDILOL 12.5 MG TAB PO SCH ×2 (09:00→20:04)
[2017-09-03] MEDS: LISINOPRIL 10 MG TAB PO SCH (09:00)
[2017-09-03] MEDS: SPIRONOLACTONE 25 MG TAB PO SCH (09:00)
[2017-09-03] MEDS: PANTOPRAZOLE SOD 40 MG DELAYED RELEASE TAB PO SCH (09:00)
[2017-09-03] MEDS: SODIUM CHLORIDE 0.9% FLUSH 10 ML FLUSH IV FLUSH SCH ×2 (09:00→20:04)
[2017-09-03 09:23] LABS: CALCIUM 9.3 MG/DL (8.5-10.1); CREATININE 0.97 MG/DL (0.60-1.30); MAGNESIUM 2.6 MG/DL (1.5-2.5)
[2017-09-03 09:24] LABS: PHOSPHORUS 3.4 MG/DL (2.5-4.9)
[2017-09-03] MEDS ORDERED: ACETAMINOPHEN 1000 MG/100 ML 100 ML IV ONE ×2 (10:55→15:55)
--- NOTE | 2017-09-03 11:04 | HHI.PR ---
Subjective Remarks Follow-up brain mass, coronary artery disease. The patient is scheduled for neurosurgical procedure this morning. He has no complaints at this time. Discussed with patient and family at bedside. They have no further questions at this time. Objective Vitals Vital Signs Date Time Temp Pulse Resp B/P (MAP) Pulse Ox O2 Delivery O2 Flow Rate FiO2 09/03/17 08:23 97.6 58 17 113/64 (80) 96 09/03/17 03:48 97.6 53 18 89/52 (64) 96 09/03/17 01:26 87/50 (62) 09/03/17 00:39 98.0 56 18 83/50 (61) 95 09/02/17 23:31 98 21 09/02/17 20:31 97.8 62 20 98/57 (71) 95 09/02/17 17:43 58 20 110/57 (74) 98 09/02/17 16:00 64 09/02/17 16:00 97.4 64 21 96/59 (71) 99 09/02/17 12:00 71 09/02/17 12:00 98.0 71 21 105/52 (69) 98 I/O 09/02/17 09/02/17 09/02/17 09/03/17 09/03/17 09/03/17 06:59 14:59 22:59 06:59 14:59 22:59 Intake Total 400 ml 100 ml 845 ml Output Total 601 ml 600 ml Balance -201 ml 100 ml 245 ml Intake Oral 300 ml 240 ml IV Total 100 ml 100 ml 605 ml Output Urine Total 600 ml 600 ml Stool Total 1 ml # Voids 3 # Bowel Movements 0 Result Diagram: 09/03/17 0844 09/03/17 0844 Imaging Last Impressions Myocardial Perfusion Scan Nuc Med 09/02/17 0000 Signed Impressions: Service Date/Time: Saturday, September 02, 2017 13:05 - CONCLUSION: 1. Predominantly fixed lateral wall perfusion abnormality with mild surrounding reperfusion at rest characteristics of a myocardial infarct with associated ventricular dilatation. 2. Decreased ejection fraction measuring 48%%. 3. No evidence of significant stress-induced reversible perfusion abnormalities. RISK CATEGORY: Intermediate (1-3%% Annual Mortality Rate) Gael Wong MD Chest X-Ray 08/31/17 0000 Signed Impressions: Service Date/Time: Thursday, August 31, 2017 10:20 - CONCLUSION: 1. Patchy opacity in the left lung base which could represent early pneumonia. 2. Apparent scarring. 3. Status post median sternotomy. Tenzin Carrizales MD Chest CT 08/31/17 0000 Signed Impressions: Service Date/Time: Friday, September 01, 2017 17:17 - CONCLUSION: 1. Infiltrating endobronchial lesion in the left upper lobe bronchus with luminal irregularity and abnormal surrounding soft tissue in the left hilum. Enlarged subcarinal lymph node. Findings most characteristic of malignancy. There is also some lingular atelectasis distally as well as lingular bronchiectasis. 2. Fibrotic changes in the lungs predominantly at the bases and lung periphery without significant honeycombing. Mild to moderate emphysema. Thuan Mcdaniel MD Brain MRI 08/31/17 0000 Signed Impressions: Service Date/Time: Thursday, August 31, 2017 11:23 - CONCLUSION: 1. 6 cm rim-enhancing mass in the left frontal lobe with surrounding vasogenic edema and mass effect. No other brain masses identified. Differential diagnosis includes primary brain tumor such as glioma. Cannot exclude metastatic disease. Thuan Mcdaniel MD Abdomen/Pelvis CT 08/31/17 0000 Signed Impressions: Service Date/Time: Friday, September 01, 2017 17:17 - CONCLUSION: 1. Basilar fibrotic changes in the lungs with bronchiectasis in the lingula. 2. Severe coronary artery disease. 3. No acute findings within the abdomen or pelvis. Mild constipation. No mass or adenopathy identified. Thuan Mcdaniel MD Objective Remarks General: No acute distress. Heart: Regular rate and rhythm. No murmur. Lungs: Clear to auscultation bilaterally. No wheezes, rales, or rhonchi. Breathing is nonlabored. Abdomen: Soft, nontender, nondistended. Extremities: No lower extremity edema. Psych: Alert and oriented. Procedures None Urinary Catheter: No Vascular Central Line Catheter: No A/P Assessment and Plan 1. 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 Appreciate neurosurgery recommendations. Going for craniotomy with resection today. Continue steroids. 2. Coronary artery disease: History of CABG. Abnormal nuclear stress test. Echocardiogram showed ejection fraction 50-55%. Evaluated by cardiology prior to surgery today. No chest pain. Continue statin, carvedilol, spironolactone, aspirin. 3. Possible early left lower lobe infiltrate, pneumonia: Continue oxygen as needed. Continue antibiotics. 4. COPD: Continue Symbicort, albuterol nebs. Not currently in exacerbation. 5. Tobacco abuse: Counseled to quit smoking. 6. GI prophylaxis: Protonix. 7. Return arthritis: Currently on dexamethasone. On chronic daily prednisone at home. 8. DVT prophylaxis: SCDs. Chemical prophylaxis on hold in anticipation of surgery. Santy Dill MD Sep 03, 2017 11:04
[2017-09-03] MEDS ORDERED: MANNITOL INJ 50 ML ONE (11:06)
[2017-09-03] MEDS ORDERED: levETIRAcetam 500 MG/5 ML VIAL IV ONE ×2 (11:23→11:30)
[2017-09-03] MEDS ORDERED: DEXMEDETOMIDINE HCL 200 MCG/2 ML VIAL ONE ×2 (11:25→15:56)
[2017-09-03] MEDS ORDERED: FAMOTIDINE 20 MG/2 ML VIAL ONE ×2 (11:25→15:56)
[2017-09-03] MEDS ORDERED: HYDROmorphone HCL PF 2 MG/ML VIAL ONE ×2 (11:25→15:55)
[2017-09-03] MEDS ORDERED: SUGAMMADEX SODIUM 200 MG/2 ML VIAL IV PUSH ONE ×2 (11:26→15:56)
[2017-09-03] MEDS ORDERED: ePHEDrine/NS 25 MG/5 ML SYRINGE IV ONE (12:00)
[2017-09-03] MEDS ORDERED: VECURONIUM BROMIDE 20 MG VIAL IV ONE (12:00)
[2017-09-03] MEDS ORDERED: ROCURONIUM INJ 50 MG/5 ML SYRINGE IV PUSH ONE (12:00)
[2017-09-03] MEDS ORDERED: LABETALOL HCL 100 MG/20 ML VIAL IV ONE (12:00)
[2017-09-03] MEDS ORDERED: PHENYLEPHRINE HCL 10 MG/ML VIAL IV ONE (12:00)
[2017-09-03] MEDS ORDERED: NORMOSOL R INJ 1,000 ML IV ONE (12:00)
[2017-09-03] MEDS ORDERED: SODIUM CHLORIDE 0.9% 10 ML VIAL IV ONE (12:00)
[2017-09-03] MEDS ORDERED: PHENYLEPH/NS 1000 MCG/10 ML SYR IV ONE (12:00)
[2017-09-03] MEDS ORDERED: ceFAZolin INJ 1,000 MG VIAL IV ONE ×2 (12:00→14:03)
[2017-09-03] MEDS ORDERED: ONDANSETRON HCL 4 MG/2 ML VIAL IV ONE (12:00)
[2017-09-03] MEDS ORDERED: SODIUM CHLOR 0.9% 250 ML INJ 500 ML IV ONE (12:00)
[2017-09-03] MEDS ORDERED: LIDOCAINE HCL 1% PF 5 ML SYRINGE OTHER ONE (12:00)
[2017-09-03] MEDS ORDERED: PROPOFOL 200 MG/20 ML AMP IV ONE (12:00)
[2017-09-03] MEDS ORDERED: DEXAMETHASONE SOD PHOS 4 MG/ML VIAL IV ONE (12:00)
[2017-09-03] MEDS ORDERED: STERILE WATER FOR INJECTION 20 ML VIAL IV ONE (12:00)
[2017-09-03] MEDS ORDERED: BUPIVACAINE/EPINEPHRINE 0.5% 50 ML VIAL ONE (12:16)
[2017-09-03] MEDS ORDERED: NITROGLYCERIN-D5W 50 MG/250 ML 250 ML ONE (12:26)
[2017-09-03] MEDS: AZITHROMYCIN INJ 500 MG in SODIUM CHLOR 0.9% 250 ML INJ 250 ML IV SCH (13:10)
[2017-09-03] MEDS ORDERED: VANCOMYCIN HCL 1000 MG VIAL IV ONE (14:03)
[2017-09-03] MEDS ORDERED: MORPHINE SULFATE 4 MG/ML INJ IV PUSH PRN (15:30)
[2017-09-03] MEDS ORDERED: SODIUM CHLORIDE 0.9% FLUSH 10 ML FLUSH IV FLUSH PRN (15:30)
--- NOTE | 2017-09-03 15:38 | PD.OP ---
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 endotracheal by Susan vick Surgeon: Sean Freeman M.D. Operation and Findings: Following initiation of general endotracheal anesthesia the patient had invasive lines and Rodriges catheter in place along with sequential compression device. A gram of vancomycin and Keppra was administered intravenously and he was positioned supine with the right shoulder elevated on a roll and head turned to the right side and secured in the [place] 3 pin headrest. The Brain[facility] navigation system was then registered with external landmarks and good accuracy confirmed. A left curvilinear frontotemporal incision area head shaved and prepped with ChloraPrep and sterilely draped in the usual sterile fashion. Incision was then made after infiltrating the scalp was 0.5% Marcaine with epinephrine solution a skin incision made and Samara clips were used at the scalp edges for hemostasis and the flap retracted with hooks. Left temporalis muscle and fascia was also incised and detached from the frontal bone and retracted with hooks. With an automated fingerprint classifier temporal bur holes made and then with the craniotome the bone flap was elevated. The dura opened in a cruciate format and bone holes placed in the craniotomy edges with 4-0 Nurolon dural tacking stitches for hemostasis. Further dissection was undertaken using microtechnique with microscope medication. A corticectomy about 2 cm was made several gyri in the frontal aspect of the mass along the middle frontal gyrus and identified at the anterior border of the mass which is localized with the navigation system also. Resection of this mass was undertaken using microtechnique microscope magnification along with the Brain[facility] navigation guidance. The mass extended up to the pial surface. Initial debulking undertaken in the middle which was cystic with a clear lightly xanthochromic fluid and subsequent circumferential dissection dissection undertaken with a gross total resection achieved. 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 Bipolar cautery used for hemostasis in the resection bed which was then lined with Surgicel and no bleeding was encountered at this point. Cavity was filled with saline solution and the dura approximately using 4 Nurolon sutures with a central dural tacking stitch. Bone flap approximated using Tamela mini plates and bur hole covers. The area was then copiously irrigated. The temporalis fascia was approximated and using 2-0 Vicryl sutures and the galea reapproximated using 3-0 Vicryl interrupted sutures and final scalp closure was with marco. The Chaparro head was then removed and a sterile pressing dressing applied. There were no intraoperative complications and all sponge and needle count was correct at the end of the procedure. Estimated blood loss about 200 cc. Patient was extubated and taken to the recovery room. Sean Freeman MD Sep 03, 2017 15:38
[2017-09-03] MEDS ORDERED: DO NOT ADM ANY ANTICOAGULANT DRUGS PRN (15:41)
[2017-09-03] MEDS: NS + KCL 20 MEQ INJ 1,000 ML IV SCH (16:21)
[2017-09-03 16:27] LABS: AUTOMATED NEUTROPHIL # 7.8 TH/MM3 (1.8-7.7); BASOPHIL % 0.1 % (0.0-2.0); HEMATOCRIT 38.1 % (39.0-51.0); LYMPH % 8.8 % (9.0-44.0); LYMPHOCYTE # 0.8 TH/MM3 (1.0-4.8); MEAN CELL VOLUME 95.2 FL (80.0-100.0); MEAN CORPUSCULAR HEMOGLOBIN 32.4 PG (27.0-34.0); MEAN CORPUSCULAR HGB CONC 34.1 % (32.0-36.0); MEAN PLATELET VOLUME 6.7 FL (7.0-11.0); MONO % 3.6 % (0.0-8.0); MONOCYTE # 0.3 TH/MM3 (0-0.9); NEUT % 87.5 % (16.0-70.0); PLATELET COUNT 282 TH/MM3 (150-450); RED CELL DISTRIBUTION WIDTH 12.9 % (11.6-17.2); WHITE BLOOD COUNT 8.9 TH/MM3 (4.0-11.0)
[2017-09-03 16:55] LABS: BICARBONATE 25.2 MEQ/L (21.0-32.0); CALCIUM 8.1 MG/DL (8.5-10.1); CREATININE 0.74 MG/DL (0.60-1.30); MAGNESIUM 2.2 MG/DL (1.5-2.5)
[2017-09-03] MEDS: ATORVASTATIN 80 MG TAB PO SCH (20:04)
[2017-09-04] VITALS: BP 110/57; PULSE 52; RESP 17; TEMP 97.5; O2SAT 95
[2017-09-04] MEDS: PIPERACIL-TAZO 4.5 GM PREMIX 100 ML IV SCH ×4 (00:36→23:01)
[2017-09-04] MEDS: SODIUM CHLORIDE 0.9% FLUSH 10 ML FLUSH IV FLUSH SCH ×5 (00:37→22:59)
[2017-09-04] MEDS: DEXAMETHASONE SOD PHOS 4 MG/ML VIAL IV PUSH SCH ×4 (03:48→22:59)
[2017-09-04] MEDS: NS + KCL 20 MEQ INJ 1,000 ML IV SCH ×2 (03:48→16:26)
[2017-09-04 04:00] VITALS: BP 109/60; PULSE 61; RESP 19; TEMP 97.6; O2SAT 95
[2017-09-04 08:00] VITALS: BP 114/64; PULSE 62; PULSE 64; RESP 19; TEMP 97.6; O2SAT 95
[2017-09-04] MEDS: INSULIN ASPART SUPPLEMENTAL SCALE SQ SCH ×4 (08:00→21:00)
--- NOTE | 2017-09-04 08:42 | HHI.NSPN ---
(Mika Martinez) History Chief Complaint: cerebral mass. (Mika Martinez) Interval History 66-year-old right-handed male with a two-week history of confusion with difficulty with speech and generalized weakness. Patient and also relates six-month history of right leg weakness and especially when he is driving he notices right leg getting weak and numb. Denies any headache or any nausea or vomiting. Denies any incontinence. His appetite has been poor and his loss weight over the past several months. Given worsening speech and confusion he was taken to [facility] in [place] and CT scan head without contrast obtained reveals a 5.1 cm cystic mass in the left frontal lobe with surrounding vasogenic edema and mass effect. He is transferred to [facility] for further management. 08/31/17: Pt awake and alert. He has some confusion but follows simple commands well. He has some expressive aphasia. He has had complains of numbness in right lower leg which he states is improved today. 09/04/17: Pt underwent a left craniotomy for mass resection on 09/03/17. Pt awake and alert. Mild incisional discomfort. No n/v. No paresthesias. No blurred or double vision. No muscle weakness. (Mika Martinez) Review of Systems General: Negative for: fever, chills, insomnia Respiratory: Negative for: shortness of breath, cough, sputum Cardiovascular: Negative for: chest pain Gastrointestinal: Negative for: nausea, vomitting, diarrhea, constipation ( Mika Martinez) Exam Results Vital Signs Date Time Temp Pulse Resp B/P (MAP) Pulse Ox O2 Delivery O2 Flow Rate FiO2 09/04/17 04:00 61 09/04/17 04:00 97.6 19 109/60 (76) 95 09/03/17 16:45 Nasal Cannula 2 09/02/17 23:31 21 Intake and Output 09/04/17 09/04/17 09/05/17 08:00 16:00 00:00 Intake Total 1320 ml Output Total 850 ml Balance 470 ml (Mika Martinez) Physical Examination General: Pt awake and alert in NAD. Eyes: Pupils equal. Sclera anicteric. Resp: CTA bilaterally. Heart: NSR no murmurs Abd: Soft positive bs Skin: No cyanosis or erythema Muscle: Moves all 4 extremities well. Neuro: Pt awake and alert. Follows commands well. Speech clear. EOMs intact. Pupils equal. (Mika Martinez) Lab, Micro, Other Results Last Impressions Myocardial Perfusion Scan Nuc Med 09/02/17 0000 Signed Impressions: Service Date/Time: Saturday, September 02, 2017 13:05 - CONCLUSION: 1. Predominantly fixed lateral wall perfusion abnormality with mild surrounding reperfusion at rest characteristics of a myocardial infarct with associated ventricular dilatation. 2. Decreased ejection fraction measuring 48%%. 3. No evidence of significant stress-induced reversible perfusion abnormalities. RISK CATEGORY: Intermediate (1-3%% Annual Mortality Rate) Gael Wong MD Chest X-Ray 08/31/17 Signed Impressions: Service Date/Time: Thursday, August 31, 2017 10:20 - CONCLUSION: 1. Patchy opacity in the left lung base which could represent early pneumonia. 2. Apparent scarring. 3. Status post median sternotomy. Tenzin Carrizales MD Chest CT 08/31/17 Signed Impressions: Service Date/Time: Friday, September 01, 2017 17:17 - CONCLUSION: 1. Infiltrating endobronchial lesion in the left upper lobe bronchus with luminal irregularity and abnormal surrounding soft tissue in the left hilum. Enlarged subcarinal lymph node. Findings most characteristic of malignancy. There is also some lingular atelectasis distally as well as lingular bronchiectasis. 2. Fibrotic changes in the lungs predominantly at the bases and lung periphery without significant honeycombing. Mild to moderate emphysema. Thuan Mcdaniel MD Brain MRI 08/31/17 Signed Impressions: Service Date/Time: Thursday, August 31, 2017 11:23 - CONCLUSION: 1. 6 cm rim-enhancing mass in the left frontal lobe with surrounding vasogenic edema and mass effect. No other brain masses identified. Differential diagnosis includes primary brain tumor such as glioma. Cannot exclude metastatic disease. Thuan Mcdaniel MD Abdomen/Pelvis CT 08/31/17 Signed Impressions: Service Date/Time: Friday, September 01, 2017 17:17 - CONCLUSION: 1. Basilar fibrotic changes in the lungs with bronchiectasis in the lingula. 2. Severe coronary artery disease. 3. No acute findings within the abdomen or pelvis. Mild constipation. No mass or adenopathy identified. Thuan Mcdaniel MD Laboratory Tests Test 09/03/17 08:44 09/03/17 15:50 White Blood Count 10.2 TH/MM3 8.9 TH/MM3 Red Blood Count 4.43 MIL/MM3 4.00 MIL/MM3 Hemoglobin 14.8 GM/DL 13.0 GM/DL Hematocrit 42.8 % 38.1 % Mean Corpuscular Volume 96.6 FL 95.2 FL Mean Corpuscular Hemoglobin 33.4 PG 32.4 PG Mean Corpuscular Hemoglobin Concent 34.5 % 34.1 % Red Cell Distribution Width 12.7 % 12.9 % Platelet Count 296 TH/MM3 282 TH/MM3 Mean Platelet Volume 6.7 FL 6.7 FL Blood Urea Nitrogen 20 MG/DL 18 MG/DL Creatinine 0.97 MG/DL 0.74 MG/DL Random Glucose 141 MG/DL 159 MG/DL Calcium Level 9.3 MG/DL 8.1 MG/DL Phosphorus Level 3.4 MG/DL Magnesium Level 2.6 MG/DL 2.2 MG/DL Sodium Level 140 MEQ/L 139 MEQ/L Potassium Level 4.3 MEQ/L 3.8 MEQ/L Chloride Level 105 MEQ/L 107 MEQ/L Carbon Dioxide Level 28.0 MEQ/L 25.2 MEQ/L Anion Gap 7 MEQ/L 7 MEQ/L Estimat Glomerular Filtration Rate 77 ML/MIN 105 ML/MIN Neutrophils (%) (Auto) 87.5 % Lymphocytes (%) (Auto) 8.8 % Monocytes (%) (Auto) 3.6 % Eosinophils (%) (Auto) 0.0 % Basophils (%) (Auto) 0.1 % Neutrophils # (Auto) 7.8 TH/MM3 Lymphocytes # (Auto) 0.8 TH/MM3 Monocytes # (Auto) 0.3 TH/MM3 Eosinophils # (Auto) 0.0 TH/MM3 Basophils # (Auto) 0.0 TH/MM3 CBC Comment DIFF FINAL Differential Comment 09/04/17 09/04/17 09/05/17 15:00 23:00 07:00 Intake Total 100 ml Balance 100 ml IV Total 100 ml (Mika Martinez) Medical Decision Making Impression and Plan A: 66-year-old gentleman with a large left frontal cystic mass with surrounding mass effect and edema. Differential diagnosis includes a metastasis as well as a primary lung mass along with the infectious inflammatory etiologies. P: Continue with Decadron Continue with PT/OT/Speech therapy. D/C a line Follow pathology. (Mika Martinez) Attending Statement The exam, history, and the medical decision-making described in the above note were completed with the assistance of the mid-level provider. I reviewed and agree with the findings presented. I attest that I had a [id number] encounter with the patient on the same day, and personally performed and documented my assessment and findings in the medical record. Doing very well postoperatively with stable exam and follow-up CT scan with no complications. Increase activity status as tolerated and transfer to floor tomorrow if stable. (Sean Freeman MD) Mika Martinez Sep 04, 2017 08:42 Sean Freeman MD Sep 04, 2017 16:39
[2017-09-04] MEDS: DOCUSATE SODIUM 50 MG/SENNA 8.6 MG TAB PO SCH ×2 (09:00→21:00)
[2017-09-04] MEDS: levETIRAcetam 500 MG TAB PO SCH ×2 (09:00→22:59)
[2017-09-04] MEDS: CARVEDILOL 12.5 MG TAB PO SCH ×2 (09:00→22:59)
[2017-09-04] MEDS: LISINOPRIL 10 MG TAB PO SCH (09:00)
[2017-09-04] MEDS: BUDESONIDE-FORMOTEROL 160/4.5 MCG INHALER INH SCH ×2 (09:00→21:00)
[2017-09-04] MEDS: PANTOPRAZOLE SOD 40 MG DELAYED RELEASE TAB PO SCH (09:00)
[2017-09-04] MEDS: SPIRONOLACTONE 25 MG TAB PO SCH (09:00)
[2017-09-04 12:00] VITALS: BP 83/50; PULSE 62; PULSE 66; RESP 19; TEMP 98; O2SAT 95
[2017-09-04] MEDS: AZITHROMYCIN INJ 500 MG in SODIUM CHLOR 0.9% 250 ML INJ 250 ML IV SCH (12:00)
--- NOTE | 2017-09-04 12:27 | HHI.PR ---
Subjective Remarks Follow-up brain mass, coronary artery disease. Patient has no complaints at this time. Pain is well controlled. Denies chest pain or dyspnea. Objective Vitals Vital Signs Date Time Temp Pulse Resp B/P (MAP) Pulse Ox O2 Delivery O2 Flow Rate FiO2 09/04/17 04:00 61 09/04/17 04:00 97.6 61 19 109/60 (76) 95 09/04/17 00:00 52 09/04/17 00:00 97.5 52 17 110/57 (74) 95 09/03/17 22:00 50 09/03/17 20:00 71 09/03/17 20:00 97.4 71 20 131/66 (87) 96 09/03/17 17:33 96.4 50 15 128/67 (87) 96 09/03/17 17:33 96 21 09/03/17 16:45 50 14 119/72 (88) 100 Nasal Cannula 2 09/03/17 16:30 97.4 53 14 117/59 (78) 100 Nasal Cannula 2 09/03/17 16:15 55 13 124/62 (82) 100 Nasal Cannula 2 09/03/17 16:00 58 15 125/63 (83) 100 Nasal Cannula 2 09/03/17 16:00 16 09/03/17 15:45 55 14 120/64 (82) 100 Simple Mask 6 09/03/17 15:39 97.4 51 16 136/62 (86) 100 Simple Mask 6 09/03/17 15:39 100 Simple Mask 6.00 I/O 09/03/17 09/03/17 09/03/17 09/04/17 09/04/17 09/04/17 07:00 15:00 23:00 07:00 15:00 23:00 Intake Total 2150 ml 1220 ml 100 ml Output Total 700 ml 850 ml Balance 1450 ml 370 ml 100 ml Intake Oral 0 ml 120 ml IV Total 150 ml 1100 ml 100 ml Other 2000 ml Output Urine Total 600 ml 850 ml Estimated Blood Loss 100 ml # Bowel Movements 0 Result Diagram: 09/03/17 1550 09/03/17 1550 Imaging Last Impressions Myocardial Perfusion Scan Nuc Med 09/02/17 0000 Signed Impressions: Service Date/Time: Saturday, September 02, 2017 13:05 - CONCLUSION: 1. Predominantly fixed lateral wall perfusion abnormality with mild surrounding reperfusion at rest characteristics of a myocardial infarct with associated ventricular dilatation. 2. Decreased ejection fraction measuring 48%%. 3. No evidence of significant stress-induced reversible perfusion abnormalities. RISK CATEGORY: Intermediate (1-3%% Annual Mortality Rate) Gael Wong MD Chest X-Ray 08/31/17 Signed Impressions: Service Date/Time: Thursday, August 31, 2017 10:20 - CONCLUSION: 1. Patchy opacity in the left lung base which could represent early pneumonia. 2. Apparent scarring. 3. Status post median sternotomy. Tenzin Carrizales MD Chest CT 08/31/17 0000 Signed Impressions: Service Date/Time: Friday, September 01, 2017 17:17 - CONCLUSION: 1. Infiltrating endobronchial lesion in the left upper lobe bronchus with luminal irregularity and abnormal surrounding soft tissue in the left hilum. Enlarged subcarinal lymph node. Findings most characteristic of malignancy. There is also some lingular atelectasis distally as well as lingular bronchiectasis. 2. Fibrotic changes in the lungs predominantly at the bases and lung periphery without significant honeycombing. Mild to moderate emphysema. Thuan Mcdaniel MD Brain MRI 08/31/17 0000 Signed Impressions: Service Date/Time: Thursday, August 31, 2017 11:23 - CONCLUSION: 1. 6 cm rim-enhancing mass in the left frontal lobe with surrounding vasogenic edema and mass effect. No other brain masses identified. Differential diagnosis includes primary brain tumor such as glioma. Cannot exclude metastatic disease. Thuan Mcdaniel MD Abdomen/Pelvis CT 08/31/17 Signed Impressions: Service Date/Time: Friday, September 01, 2017 17:17 - CONCLUSION: 1. Basilar fibrotic changes in the lungs with bronchiectasis in the lingula. 2. Severe coronary artery disease. 3. No acute findings within the abdomen or pelvis. Mild constipation. No mass or adenopathy identified. Thuan Mcdaniel MD Objective Remarks General: No acute distress. HEENT: Bandage on head, clean and dry. Heart: Regular rate and rhythm. No murmur. Lungs: Clear to auscultation bilaterally. No wheezes, rales, or rhonchi. Breathing is nonlabored. Abdomen: Soft, nontender, nondistended. Extremities: No lower extremity edema. SCDs. Psych: Alert and oriented. Procedures 4/2/18 Left frontal craniotomy for neoplasm resection; BrainLab stereotactic the intraoperative navigation Urinary Catheter: Yes Assessment to: Remove Vascular Central Line Catheter: No A/P Assessment and Plan 1. 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 Appreciate neurosurgery recommendations. Status post craniotomy with resection. Continue steroids. Doing well postoperatively. 2. Coronary artery disease: History of CABG. Abnormal nuclear stress test. Echocardiogram showed ejection fraction 50-55%. Evaluated by cardiology prior to surgery today. No chest pain. Continue statin, carvedilol, spironolactone, aspirin. 3. Possible early left lower lobe infiltrate, pneumonia: Continue oxygen as needed. Continue antibiotics. 4. COPD: Continue Symbicort, albuterol nebs. Not currently in exacerbation. 5. Tobacco abuse: Counseled to quit smoking. 6. GI prophylaxis: Protonix. 7. Return arthritis: Currently on dexamethasone. On chronic daily prednisone at home. 8. DVT prophylaxis: SCDs. Chemical prophylaxis on hold. Discharge Planning Pending further clinical improvement and neurosurgery clearance. Santy Dill MD Sep 04, 2017 12:27
--- NOTE | 2017-09-04 13:01 | RADRPT ---
EXAM DATE/TIME: 09/04/2017 12:32 [facility] COMPARISON: MRI 08/31/2017. INDICATIONS : Post op for tumor RADIATION DOSE: 56.35 CTDIvol (mGy) MEDICAL HISTORY : Cardiovascular disease. Chronic obstructive pulmonary disease. SURGICAL HISTORY : None. ENCOUNTER: Initial ACUITY: 1 day PAIN SCALE: 0/10 LOCATION: cranial TECHNIQUE: Multiple contiguous axial images were obtained of the head. Using automated exposure control and adj ustment of the mA and/or kV according to patient size, radiation dose was kept as low as reasonably a chievable to obtain optimal diagnostic quality images. DICOM format image data is available electro nically for review and comparison. FINDINGS: Interim left frontal craniotomy and the cystic mass of the left frontal lobe has been resected. Very mild parenchymal hemorrhage around the margins of the surgical bed. Considerable pneumocephaly been n o significant subdural blood. Slightly decreased rightward midline shift, currently approximately 5 m m. No ventricular blood or dilatation. No evidence of an acute ischemic event. CONCLUSION: Cystic mass of the left frontal lobe has been resected. Minimal luis f-surgical parenchymal contusion. Pneumocephaly. Decreased midline shift. Harris Dial MD on September 04, 2017 at 12:57 Board Certified Radiologist. This report was verified electronically.
[2017-09-04 16:00] VITALS: BP 93/50; PULSE 64; PULSE 66; RESP 19; TEMP 98; O2SAT 95
[2017-09-04 20:00] VITALS: BP 138/66; PULSE 74; RESP 19; TEMP 98.6; O2SAT 98
[2017-09-04] MEDS: ATORVASTATIN 80 MG TAB PO SCH (22:59)
[2017-09-05] VITALS (7 sets, daily range): BP systolic 88–128; BP diastolic 50–72; PULSE 64–86; RESP 13–25; TEMP 97.5–98.5; O2SAT 93–99
--- NOTE | 2017-09-05 01:39 | MB ---
cc: Travis Owen MD DATE: 09/04/2017 REASON FOR CONSULTATION: The patient with a large brain mass and lung lesions. HISTORY OF PRESENT ILLNESS: This is a 67-year-old male who was transferred from [facility] after he presented to that hospital with a 2-week history of confusion, difficulty with speech, and weakness. According to the patient, he recently traveled from [facility] to the [facility] to visit his daughter. He endorses a several-pound weight loss and anorexia. At the [facility], a CT scan of the head was reviewed which revealed a 5.1 cm cystic mass in the left frontal lobe with surrounding vasogenic edema and mass effect. The patient was subsequently transferred to [facility]. The patient underwent additional imaging including a CT of the chest, MRI of the brain, and abdominal CT scan. The brain MRI revealed a circumscribed 6 cm mass in the left frontal lobe with rim enhancement. There was surrounding vasogenic edema and mass effect with a 5 mm [id number] midline shift at the anterior corpus callosum. The patient was started on steroids. He was seen by neurosurgery. He has undergone a left-sided craniotomy and resection of the mass on 09/03/2017; final pathology results are pending. The patient had additional imaging including a CT of the chest, which revealed an infiltrating endobronchial lesion in the left upper lobe bronchus with adjacent left hilar adenopathy and subcarinal adenopathy measuring up to 1.8 cm in the short axis diameter. These findings are highly suspicious for a primary bronchogenic carcinoma. He also had a CT of the abdomen and pelvis, which did not show any metastatic disease in the abdomen and pelvis. The fibrotic change in the lung were seen. The patient is currently awake and alert. He is status post craniotomy, slowly recovering from his surgery. He has been ambulating with assistance. He endorses a good appetite. He denies any pain. He states that eventually he plans to go back to [place]. He has a very long history of tobacco abuse of greater than 40 pack-years. He used to work in the [employer] business. His family history is significant for lung cancer; his father developed lung cancer in his 80s. He is . REVIEW OF SYSTEMS: A comprehensive review of system was completed which is negative except as described in the HPI. PAST MEDICAL HISTORY: COPD, tobacco abuse, history of coronary artery disease (he has had stent placement in the past), history of osteoarthritis. PAST SURGICAL HISTORY: Coronary artery bypass grafting 2 years ago and stent placement several years ago. Recent craniotomy with resection of the brain mass. FAMILY HISTORY: Reviewed. Father had developed lung cancer in his 80s. SOCIAL HISTORY: He has more than 40 pack-years of smoking history. He drinks alcohol 2-3 times per week and endorses 4-6 beers on those days. He denies any illicit drug use. He lives with his . MEDICATIONS: Morphine sulfate 2 mg IV q. 2 hours, vancomycin, atorvastatin 80 mg p.o. at bedtime, Symbicort 2 puffs INH q. 12 hours, Zosyn, sliding scale insulin, azithromycin, DuoNebs, pantoprazole 40 mg p.o. daily, carvedilol 25 mg p.o. b.i.d., amlodipine 10 mg p.o. daily, lisinopril 10 mg p.o. daily, spironolactone 25 mg p.o. daily, Keppra 500 mg p.o. q. 12 hours, dexamethasone 4 mg IV every 6 hours p.r.n., Ativan p.r.n., Zofran p.r.n., [place] 10/325 p.r.n., senna p.r.n., bisacodyl p.r.n., Lactulose p.r.n. ALLERGIES: NO KNOWN DRUG ALLERGIES. PHYSICAL EXAMINATION: VITAL SIGNS: Blood pressure is 93/50, pulse is in the 60s, temperature is 98, respiratory rate is 12. O2 saturations are 95% on room air. GENERAL: Acutely ill-appearing male in no apparent distress. He has a large Band-Aid on his head status post craniotomy. HEENT: Pupils are equal, round, reactive to light. EOMI. No oral thrush. No lesion. NECK: Supple. No JVD. No bruits. No lymphadenopathy. CHEST: Clear to auscultation bilaterally. CARDIAC: S1, S2. Regular rate and rhythm. ABDOMEN: Soft, nontender, nondistended. Bowel sounds are present. EXTREMITIES: Without any edema, erythema or cyanosis. SKIN: Without any petechia, lesions or bruises. NEUROLOGIC: No focal deficits. PSYCHIATRIC: Mood and affect appropriate. LABORATORY DATA: WBC 8.9, hemoglobin 13, platelet count 282. Serum chemistries: Sodium 139, potassium 3.8, CO2 of 25.2, anion gap 7, BUN 18, creatinine 0.74, GFR is 105, calcium is 8.1, magnesium is 2.2. Imaging was reviewed in the EMR. ASSESSMENT AND PLAN: This is a 67-year-old male with extensive history of tobacco abuse, chronic obstructive pulmonary disease, coronary artery disease status post coronary artery bypass graft and stent placement, hypertension, who was brought to the emergency room with weight loss, anorexia, and mental status changes. A CT scan of the brain revealed a large mass. He was transferred to [facility] emergency department and subsequently admitted to the hospital. He has undergone craniotomy and resection of the mass. 1. Large 6 cm enhancing mass in the left frontal lobe with surrounding vasogenic edema, status post craniotomy and resection of the mass. Based on the fact that he has a very long history of tobacco abuse and there is a bronchogenic mass, this is highly suspicious for metastatic lung cancer with metastasis to the brain. We are awaiting final pathology results. I agree with continuing IV dexamethasone. Continue seizure prophylaxis. Further recommendations will be made based on the results of the biopsy. If this is indeed metastatic bronchogenic carcinoma, he will be considered for systemic chemotherapy. I have discussed this with the patient. Further recommendations will be made, again, after the biopsy results are available. 2. Infiltrating endobronchial lesion in the left upper bronchus with surrounding soft tissue mass in the left hilum. This is highly suspicious for bronchogenic carcinoma. We will await final pathology results from the brain mass resection. 3. History of chronic obstructive pulmonary disease and tobacco abuse. He was strongly urged to abstain from smoking cigarettes in the future. 4. History of coronary artery disease, status post coronary artery bypass grafting and stent placement. 5. History of hypertension. All questions asked by the patient were answered. I discussed his imaging results. I discussed with the patient that this appears to be most likely metastatic cancer, likely from a lung primary. Thank you for allowing me to participate in the care of this patient. I will continue to follow this patient along. MD LIZZETTE Zavala/BRENDAN , 12:52 AM , 01:37 AM
[2017-09-05] MEDS: PIPERACIL-TAZO 4.5 GM PREMIX 100 ML IV SCH ×3 (04:59→17:38)
[2017-09-05] MEDS: DEXAMETHASONE SOD PHOS 4 MG/ML VIAL IV PUSH SCH ×4 (04:59→21:39)
[2017-09-05] MEDS: NS + KCL 20 MEQ INJ 1,000 ML IV SCH (04:59)
[2017-09-05 05:41] LABS: AUTOMATED NEUTROPHIL # 8.6 TH/MM3 (1.8-7.7); BASOPHIL % 0.1 % (0.0-2.0); HEMATOCRIT 35.1 % (39.0-51.0); HEMOGLOBIN 12.3 GM/DL (13.0-17.0); LYMPHOCYTE # 0.8 TH/MM3 (1.0-4.8); MEAN CELL VOLUME 94.6 FL (80.0-100.0); MEAN CORPUSCULAR HEMOGLOBIN 33.3 PG (27.0-34.0); MEAN CORPUSCULAR HGB CONC 35.2 % (32.0-36.0); MEAN PLATELET VOLUME 6.9 FL (7.0-11.0); MONO % 10.3 % (0.0-8.0); MONOCYTE # 1.1 TH/MM3 (0-0.9); NEUT % 81.6 % (16.0-70.0); PLATELET COUNT 236 TH/MM3 (150-450); RED BLOOD COUNT 3.71 MIL/MM3 (4.50-5.90); RED CELL DISTRIBUTION WIDTH 12.9 % (11.6-17.2); WHITE BLOOD COUNT 10.5 TH/MM3 (4.0-11.0)
[2017-09-05 06:07] LABS: BICARBONATE 27.1 MEQ/L (21.0-32.0); CALCIUM 8.3 MG/DL (8.5-10.1); CREATININE 0.75 MG/DL (0.60-1.30)
[2017-09-05] MEDS: INSULIN ASPART SUPPLEMENTAL SCALE SQ SCH ×4 (08:00→21:00)
--- NOTE | 2017-09-05 08:54 | HHI.NSPN ---
(Mika Martinez) History Chief Complaint: cerebral mass. (Mika Martinez) Interval History 66-year-old right-handed male with a two-week history of confusion with difficulty with speech and generalized weakness. Patient and also relates six-month history of right leg weakness and especially when he is driving he notices right leg getting weak and numb. Denies any headache or any nausea or vomiting. Denies any incontinence. His appetite has been poor and his loss weight over the past several months. Given worsening speech and confusion he was taken to [facility] in [place] and CT scan head without contrast obtained reveals a 5.1 cm cystic mass in the left frontal lobe with surrounding vasogenic edema and mass effect. He is transferred to [facility] for further management. 08/31/17: Pt awake and alert. He has some confusion but follows simple commands well. He has some expressive aphasia. He has had complains of numbness in right lower leg which he states is improved today. 09/04/17: Pt underwent a left craniotomy for mass resection on 09/03/17. Pt awake and alert. Mild incisional discomfort. No n/v. No paresthesias. No blurred or double vision. No muscle weakness. 09/05/17: Pt awake and alert. Denies headaches, nausea, vomiting, weakness, or paresthesias. Follows commands well. Speech clear and appropriate. (Mika Martinez) Review of Systems General: Negative for: fever, chills, insomnia Respiratory: Negative for: shortness of breath, cough, sputum Cardiovascular: Negative for: chest pain Gastrointestinal: Negative for: nausea, vomitting, diarrhea, constipation ( Mika Martinez) Exam Results Vital Signs Date Time Temp Pulse Resp B/P (MAP) Pulse Ox O2 Delivery O2 Flow Rate FiO2 09/05/17 04:00 86 09/05/17 04:00 98.0 13 107/65 (79) 93 09/03/17 17:33 21 09/03/17 16:45 Nasal Cannula 2 (Mika Martinez) Physical Examination General: Pt awake and alert in NAD. Eyes: Pupils equal. Sclera anicteric. Resp: CTA bilaterally. Heart: NSR no murmurs Abd: Soft positive bs Skin: No cyanosis or erythema Muscle: Moves all 4 extremities well. Neuro: Pt awake and alert. Follows commands well. Speech clear. EOMs intact. Pupils equal. (Mika Martinez) Lab, Micro, Other Results Last Impressions Head CT 09/04/17 0800 Signed Impressions: Service Date/Time: Monday, September 04, 2017 12:32 - CONCLUSION: Cystic mass of the left frontal lobe has been resected. Minimal luis f-surgical parenchymal contusion. Pneumocephaly. Decreased midline shift. Harris Dial MD Myocardial Perfusion Scan Nuc Med 09/02/17 0000 Signed Impressions: Service Date/Time: Saturday, September 02, 2017 13:05 - CONCLUSION: 1. Predominantly fixed lateral wall perfusion abnormality with mild surrounding reperfusion at rest characteristics of a myocardial infarct with associated ventricular dilatation. 2. Decreased ejection fraction measuring 48%%. 3. No evidence of significant stress-induced reversible perfusion abnormalities. RISK CATEGORY: Intermediate (1-3%% Annual Mortality Rate) Gael Wong MD Chest X-Ray 08/31/17 0000 Signed Impressions: Service Date/Time: Thursday, August 31, 2017 10:20 - CONCLUSION: 1. Patchy opacity in the left lung base which could represent early pneumonia. 2. Apparent scarring. 3. Status post median sternotomy. Tenzin Carrizales MD Chest CT 08/31/17 0000 Signed Impressions: Service Date/Time: Friday, September 01, 2017 17:17 - CONCLUSION: 1. Infiltrating endobronchial lesion in the left upper lobe bronchus with luminal irregularity and abnormal surrounding soft tissue in the left hilum. Enlarged subcarinal lymph node. Findings most characteristic of malignancy. There is also some lingular atelectasis distally as well as lingular bronchiectasis. 2. Fibrotic changes in the lungs predominantly at the bases and lung periphery without significant honeycombing. Mild to moderate emphysema. Thuan Mcdaniel MD Brain MRI 08/31/17 0000 Signed Impressions: Service Date/Time: Thursday, August 31, 2017 11:23 - CONCLUSION: 1. 6 cm rim-enhancing mass in the left frontal lobe with surrounding vasogenic edema and mass effect. No other brain masses identified. Differential diagnosis includes primary brain tumor such as glioma. Cannot exclude metastatic disease. Thuan Mcdaniel MD Abdomen/Pelvis CT 08/31/17 0000 Signed Impressions: Service Date/Time: Friday, September 01, 2017 17:17 - CONCLUSION: 1. Basilar fibrotic changes in the lungs with bronchiectasis in the lingula. 2. Severe coronary artery disease. 3. No acute findings within the abdomen or pelvis. Mild constipation. No mass or adenopathy identified. Thuan Mcdaniel MD Laboratory Tests Test 09/05/17 04:46 White Blood Count 10.5 TH/MM3 Red Blood Count 3.71 MIL/MM3 Hemoglobin 12.3 GM/DL Hematocrit 35.1 % Mean Corpuscular Volume 94.6 FL Mean Corpuscular Hemoglobin 33.3 PG Mean Corpuscular Hemoglobin Concent 35.2 % Red Cell Distribution Width 12.9 % Platelet Count 236 TH/MM3 Mean Platelet Volume 6.9 FL Neutrophils (%) (Auto) 81.6 % Lymphocytes (%) (Auto) 8.0 % Monocytes (%) (Auto) 10.3 % Eosinophils (%) (Auto) 0.0 % Basophils (%) (Auto) 0.1 % Neutrophils # (Auto) 8.6 TH/MM3 Lymphocytes # (Auto) 0.8 TH/MM3 Monocytes # (Auto) 1.1 TH/MM3 Eosinophils # (Auto) 0.0 TH/MM3 Basophils # (Auto) 0.0 TH/MM3 CBC Comment DIFF FINAL Differential Comment Blood Urea Nitrogen 14 MG/DL Creatinine 0.75 MG/DL Random Glucose 118 MG/DL Calcium Level 8.3 MG/DL Sodium Level 138 MEQ/L Potassium Level 4.0 MEQ/L Chloride Level 105 MEQ/L Carbon Dioxide Level 27.1 MEQ/L Anion Gap 6 MEQ/L Estimat Glomerular Filtration Rate 103 ML/MIN (Mika Martinez) Medical Decision Making Impression and Plan A: 66-year-old gentleman with a large left frontal cystic mass with surrounding mass effect and edema. Differential diagnosis includes a metastasis as well as a primary lung mass along with the infectious inflammatory etiologies. P: Continue with Decadron Continue with PT/OT/Speech therapy. Follow pathology. D/C IVF Transfer to floor. (Mika Martinez) Attending Statement The exam, history, and the medical decision-making described in the above note were completed with the assistance of the mid-level provider. I reviewed and agree with the findings presented. I attest that I had a [id number] encounter with the patient on the same day, and personally performed and documented my assessment and findings in the medical record. Continues to do well without any complaints. Sitting up in chair eating breakfast. Transfer to floor and continue to increase activity status as tolerated. Final pathology report pending. (Sean Freeman MD) Mika Martinez Sep 05, 2017 08:54 Sean Freeman MD Sep 05, 2017 13:15
[2017-09-05] MEDS: SODIUM CHLORIDE 0.9% FLUSH 10 ML FLUSH IV FLUSH SCH ×4 (09:00→21:39)
[2017-09-05] MEDS: DOCUSATE SODIUM 50 MG/SENNA 8.6 MG TAB PO SCH ×2 (09:00→21:39)
[2017-09-05] MEDS: LISINOPRIL 10 MG TAB PO SCH (09:00)
--- NOTE | 2017-09-05 09:32 | HHI.PR ---
Subjective Remarks Follow-up brain mass. Patient has no complaints at this time. He denies chest pain, dyspnea, nausea, vomiting. No events reported by nursing. Objective Vitals Vital Signs Date Time Temp Pulse Resp B/P (MAP) Pulse Ox O2 Delivery O2 Flow Rate FiO2 09/05/17 04:00 86 09/05/17 04:00 98.0 86 13 107/65 (79) 93 09/05/17 00:00 70 09/05/17 00:00 98.5 70 20 115/61 (79) 96 09/04/17 20:00 74 09/04/17 20:00 98.6 74 19 138/66 (90) 98 09/04/17 16:00 98.0 66 19 93/50 (64) 95 09/04/17 16:00 64 09/04/17 12:00 98.0 66 19 83/50 (61) 95 09/04/17 12:00 62 I/O 09/04/17 09/04/17 09/04/17 09/05/17 09/05/17 09/05/17 07:00 15:00 23:00 07:00 15:00 23:00 Intake Total 1220 ml 740 ml 240 ml Output Total 850 ml Balance 370 ml 740 ml 240 ml Intake Oral 120 ml 640 ml 240 ml IV Total 1100 ml 100 ml Output Urine Total 850 ml # Bowel Movements 0 1 Result Diagram: 09/05/17 0446 09/05/17 0446 Imaging Last Impressions Head CT 09/04/17 0800 Signed Impressions: Service Date/Time: Monday, September 04, 2017 12:32 - CONCLUSION: Cystic mass of the left frontal lobe has been resected. Minimal luis f-surgical parenchymal contusion. Pneumocephaly. Decreased midline shift. Harris Dial MD Myocardial Perfusion Scan Nuc Med 09/02/17 0000 Signed Impressions: Service Date/Time: Saturday, September 02, 2017 13:05 - CONCLUSION: 1. Predominantly fixed lateral wall perfusion abnormality with mild surrounding reperfusion at rest characteristics of a myocardial infarct with associated ventricular dilatation. 2. Decreased ejection fraction measuring 48%%. 3. No evidence of significant stress-induced reversible perfusion abnormalities. RISK CATEGORY: Intermediate (1-3%% Annual Mortality Rate) Gael Wong MD Chest X-Ray 08/31/17 0000 Signed Impressions: Service Date/Time: Thursday, August 31, 2017 10:20 - CONCLUSION: 1. Patchy opacity in the left lung base which could represent early pneumonia. 2. Apparent scarring. 3. Status post median sternotomy. Tenzin Carrizales MD Chest CT 08/31/17 0000 Signed Impressions: Service Date/Time: Friday, September 01, 2017 17:17 - CONCLUSION: 1. Infiltrating endobronchial lesion in the left upper lobe bronchus with luminal irregularity and abnormal surrounding soft tissue in the left hilum. Enlarged subcarinal lymph node. Findings most characteristic of malignancy. There is also some lingular atelectasis distally as well as lingular bronchiectasis. 2. Fibrotic changes in the lungs predominantly at the bases and lung periphery without significant honeycombing. Mild to moderate emphysema. Thuan Mcdaniel MD Brain MRI 08/31/17 0000 Signed Impressions: Service Date/Time: Thursday, August 31, 2017 11:23 - CONCLUSION: 1. 6 cm rim-enhancing mass in the left frontal lobe with surrounding vasogenic edema and mass effect. No other brain masses identified. Differential diagnosis includes primary brain tumor such as glioma. Cannot exclude metastatic disease. Thuan Mcdaniel MD Abdomen/Pelvis CT 08/31/17 0000 Signed Impressions: Service Date/Time: Friday, September 01, 2017 17:17 - CONCLUSION: 1. Basilar fibrotic changes in the lungs with bronchiectasis in the lingula. 2. Severe coronary artery disease. 3. No acute findings within the abdomen or pelvis. Mild constipation. No mass or adenopathy identified. Thuan Mcdaniel MD Objective Remarks General: No acute distress. Sitting up in a chair. HEENT: Bandage on head, clean and dry. Heart: Regular rate and rhythm. No murmur. Lungs: Clear to auscultation bilaterally. No wheezes, rales, or rhonchi. Breathing is nonlabored. Abdomen: Soft, nontender, nondistended. Extremities: No lower extremity edema. SCDs. Psych: Alert and oriented. Procedures 09/03/17 Left frontal craniotomy for neoplasm resection; [email or web address] stereotactic the intraoperative navigation Urinary Catheter: No Vascular Central Line Catheter: No A/P Assessment and Plan 1. 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 Appreciate neurosurgery recommendations. Status post craniotomy with resection. Continue steroids. Doing well postoperatively. Pathology pending. Evaluated by medical oncology. 2. Coronary artery disease: History of CABG. Abnormal nuclear stress test. Echocardiogram showed ejection fraction 50-55%. Evaluated by cardiology prior to surgery. No chest pain. Continue statin, carvedilol, spironolactone, aspirin. 3. Possible early left lower lobe infiltrate, pneumonia: Continue oxygen as needed. Continue antibiotics. 4. COPD: Continue Symbicort, albuterol nebs. Not currently in exacerbation. 5. Tobacco abuse: Counseled to quit smoking. 6. GI prophylaxis: Protonix. 7. Rheumatoid arthritis: Currently on dexamethasone. On chronic daily prednisone at home. 8. Endobronchial lesion with surrounding soft tissue mass in the left hilum: Highly suspicious for bronchogenic carcinoma. Appreciate oncology recommendations. 9. DVT prophylaxis: SCDs. Chemical prophylaxis on hold. Discharge Planning Transfer to medical/surgical floor. Plan for discharge home with home health PT when cleared by neurosurgery. Santy Dill MD Sep 05, 2017 09:32
[2017-09-05] MEDS: levETIRAcetam 500 MG TAB PO SCH ×2 (09:36→21:39)
[2017-09-05] MEDS: PANTOPRAZOLE SOD 40 MG DELAYED RELEASE TAB PO SCH (09:36)
[2017-09-05] MEDS: SPIRONOLACTONE 25 MG TAB PO SCH (09:37)
[2017-09-05] MEDS: CARVEDILOL 12.5 MG TAB PO SCH ×2 (09:38→21:39)
[2017-09-05] MEDS: BUDESONIDE-FORMOTEROL 160/4.5 MCG INHALER INH SCH ×2 (10:21→21:38)
[2017-09-05] MEDS: AZITHROMYCIN INJ 500 MG in SODIUM CHLOR 0.9% 250 ML INJ 250 ML IV SCH (12:25)
[2017-09-05] MEDS: ATORVASTATIN 80 MG TAB PO SCH (21:40)
[2017-09-06] VITALS: BP 137/70; PULSE 90; RESP 18; TEMP 98.5; O2SAT 97
[2017-09-06] MEDS: PIPERACIL-TAZO 4.5 GM PREMIX 100 ML IV SCH ×3 (00:54→12:36)
[2017-09-06 04:00] VITALS: BP 132/66; PULSE 56; RESP 18; TEMP 97.2; O2SAT 96
[2017-09-06] MEDS: DEXAMETHASONE SOD PHOS 4 MG/ML VIAL IV PUSH SCH ×2 (04:03→09:44)
[2017-09-06 08:31] VITALS: BP 124/68; PULSE 60; RESP 18; TEMP 97.3; O2SAT 97
[2017-09-06] MEDS: SODIUM CHLORIDE 0.9% FLUSH 10 ML FLUSH IV FLUSH SCH ×2 (09:00→09:45)
[2017-09-06] MEDS: INSULIN ASPART SUPPLEMENTAL SCALE SQ SCH ×2 (09:43→12:00)
[2017-09-06] MEDS: DOCUSATE SODIUM 50 MG/SENNA 8.6 MG TAB PO SCH (09:44)
[2017-09-06] MEDS: PANTOPRAZOLE SOD 40 MG DELAYED RELEASE TAB PO SCH (09:44)
[2017-09-06] MEDS: LISINOPRIL 10 MG TAB PO SCH (09:44)
[2017-09-06] MEDS: levETIRAcetam 500 MG TAB PO SCH (09:44)
[2017-09-06] MEDS: SPIRONOLACTONE 25 MG TAB PO SCH (09:44)
[2017-09-06] MEDS: CARVEDILOL 12.5 MG TAB PO SCH (09:44)
[2017-09-06] MEDS: BUDESONIDE-FORMOTEROL 160/4.5 MCG INHALER INH SCH (09:45)
--- NOTE | 2017-09-06 10:02 | HHI.NSPN ---
History Chief Complaint: cerebral mass. Interval History 66-year-old right-handed male with a two-week history of confusion with difficulty with speech and generalized weakness. Patient and also relates six-month history of right leg weakness and especially when he is driving he notices right leg getting weak and numb. Denies any headache or any nausea or vomiting. Denies any incontinence. His appetite has been poor and his loss weight over the past several months. Given worsening speech and confusion he was taken to [facility] in [place] and CT scan head without contrast obtained reveals a 5.1 cm cystic mass in the left frontal lobe with surrounding vasogenic edema and mass effect. He is transferred to [facility] for further management. 08/31/17: Pt awake and alert. He has some confusion but follows simple commands well. He has some expressive aphasia. He has had complains of numbness in right lower leg which he states is improved today. 09/04/17: Pt underwent a left craniotomy for mass resection on 09/03/17. Pt awake and alert. Mild incisional discomfort. No n/v. No paresthesias. No blurred or double vision. No muscle weakness. 09/05/17: Pt awake and alert. Denies headaches, nausea, vomiting, weakness, or paresthesias. Follows commands well. Speech clear and appropriate. 09/06/17: Pt awake and alert. Denies headache. No nausea, vomiting, weakness, or paresthesias. Pt wants to go home. Review of Systems General: Negative for: fever, chills, insomnia Respiratory: Negative for: shortness of breath, cough, sputum Cardiovascular: Negative for: chest pain Gastrointestinal: Negative for: nausea, vomitting, diarrhea, constipation Exam Results Vital Signs Date Time Temp Pulse Resp B/P (MAP) Pulse Ox O2 Delivery O2 Flow Rate FiO2 09/06/17 08:31 97.3 60 18 124/68 (86) 97 09/03/17 17:33 21 09/03/17 16:45 Nasal Cannula 2 Physical Examination General: Pt awake and alert in NAD. Eyes: Pupils equal. Sclera anicteric. Resp: CTA bilaterally. Heart: NSR no murmurs Abd: Soft positive bs Skin: No cyanosis or erythema. Incision clean and dry without signs of infection. Muscle: Moves all 4 extremities well. Ambulates independently. Neuro: Pt awake and alert. Follows commands well. Speech clear. EOMs intact. Pupils equal. Lab, Micro, Other Results Last Impressions Head CT 09/04/17 0800 Signed Impressions: Service Date/Time: Monday, September 04, 2017 12:32 - CONCLUSION: Cystic mass of the left frontal lobe has been resected. Minimal luis f-surgical parenchymal contusion. Pneumocephaly. Decreased midline shift. Harris Dial MD Myocardial Perfusion Scan Nuc Med 09/02/17 0000 Signed Impressions: Service Date/Time: Saturday, September 02, 2017 13:05 - CONCLUSION: 1. Predominantly fixed lateral wall perfusion abnormality with mild surrounding reperfusion at rest characteristics of a myocardial infarct with associated ventricular dilatation. 2. Decreased ejection fraction measuring 48%%. 3. No evidence of significant stress-induced reversible perfusion abnormalities. RISK CATEGORY: Intermediate (1-3%% Annual Mortality Rate) Gael Wong MD Chest X-Ray 08/31/17 0000 Signed Impressions: Service Date/Time: Thursday, August 31, 2017 10:20 - CONCLUSION: 1. Patchy opacity in the left lung base which could represent early pneumonia. 2. Apparent scarring. 3. Status post median sternotomy. Tenzin Carrizales MD Chest CT 08/31/17 0000 Signed Impressions: Service Date/Time: Friday, September 01, 2017 17:17 - CONCLUSION: 1. Infiltrating endobronchial lesion in the left upper lobe bronchus with luminal irregularity and abnormal surrounding soft tissue in the left hilum. Enlarged subcarinal lymph node. Findings most characteristic of malignancy. There is also some lingular atelectasis distally as well as lingular bronchiectasis. 2. Fibrotic changes in the lungs predominantly at the bases and lung periphery without significant honeycombing. Mild to moderate emphysema. Thuan Mcdaniel MD Brain MRI 08/31/17 0000 Signed Impressions: Service Date/Time: Thursday, August 31, 2017 11:23 - CONCLUSION: 1. 6 cm rim-enhancing mass in the left frontal lobe with surrounding vasogenic edema and mass effect. No other brain masses identified. Differential diagnosis includes primary brain tumor such as glioma. Cannot exclude metastatic disease. Thuan Mcdanile MD Abdomen/Pelvis CT 08/31/17 0000 Signed Impressions: Service Date/Time: Friday, September 01, 2017 17:17 - CONCLUSION: 1. Basilar fibrotic changes in the lungs with bronchiectasis in the lingula. 2. Severe coronary artery disease. 3. No acute findings within the abdomen or pelvis. Mild constipation. No mass or adenopathy identified. Thuan Mcdaniel MD Medical Decision Making Impression and Plan A: 66-year-old gentleman with a large left frontal cystic mass with surrounding mass effect and edema. Differential diagnosis includes a metastasis as well as a primary lung mass along with the infectious inflammatory etiologies. P: Continue with Decadron Continue with PT/OT/Speech therapy. Follow pathology. Called path for an update and they are going to call me back. Medical oncology following. D/C planning. Path is going to call me back for an update. Mika Martinez Sep 06, 2017 10:02 am
[2017-09-06] MEDS ORDERED: LEVE500 PO (10:41)
[2017-09-06] MEDS ORDERED: PANT40TA3 PO (10:41)
--- NOTE | 2017-09-06 10:49 | HHI.FF ---
Face to Face Verification Diagnosis: (1) Brain mass Physical Therapy Order: Evaluate and Treat, Improve ambulation, Strength and gait training Occupational Therapy Order: Evaluate and Treat, Improve ADL, Gross motor coordination, Fine motor coordination Home Health Nursing Order: Wound care and dressing changes Nursing assessment with vital signs Instructions: Remove scalp marco on 09/10/17. I have seen patient Tang Alas on 09/06/17. My clinical findings support the need for the requested home health care services because: Deconditioned w/ increased weakness Impaired cognition/judgement High risk of falls I certify that my clinical findings support that this patient is homebound because: Post-op weakness Impaired cognitive ability/safety Unsteady gait/balance Unable to use public transportation Mika Martinez Sep 06, 2017 10:48 am
[2017-09-06] MEDS ORDERED: DEXA4TAB PO (10:51)
--- NOTE | 2017-09-06 11:35 | HHI.DS ---
Discharge Summary Admission Date Aug 30, 2017 at 20:00 Discharge Date: Sep 06, 2017 Admitting Diagnosis Confusion, brain mass (1) COPD (chronic obstructive pulmonary disease) ICD Code: J44.9 - Chronic obstructive pulmonary disease, unspecified (2) Hypertension ICD Code: I10 - Essential (primary) hypertension (3) Coronary artery disease ICD Code: I25.10 - Atherosclerotic heart disease of [place] coronary artery without angina pectoris (4) Tobacco abuse ICD Code: Z72.0 - Tobacco use (5) Brain mass ICD Code: G93.9 - Disorder of brain, unspecified Procedures 09/03/17 Left frontal craniotomy for neoplasm resection; [facility] stereotactic the intraoperative navigation Brief History - From Admission 66-year-old right-handed male presented to [facility] with a two- week history of confusion with difficulty with speech and generalized weakness. He also relates six-month history of right leg weakness and especially when he is driving he notices right leg getting weak and numb. Denies any headache or any nausea or vomiting. Denies any incontinence. His appetite has been poor and his loss weight over the past several months. Given worsening speech and confusion he was taken to [facility] in [place] and CT scan head without contrast obtained reveals a 5.1 cm cystic mass in the left frontal lobe with surrounding vasogenic edema and mass effect. He is transferred to [facility] for higher level of care. CBC/BMP: 09/05/17 0446 09/05/17 0446 Significant Findings Laboratory Tests Test 09/03/17 15:50 09/05/17 04:46 Red Blood Count 4.00 MIL/MM3 (4.50-5.90) 3.71 MIL/MM3 (4.50-5.90) Hematocrit 38.1 % (39.0-51.0) 35.1 % (39.0-51.0) Mean Platelet Volume 6.7 FL (7.0-11.0) 6.9 FL (7.0-11.0) Neutrophils (%) (Auto) 87.5 % (16.0-70.0) 81.6 % (16.0-70.0) Lymphocytes (%) (Auto) 8.8 % (9.0-44.0) 8.0 % (9.0-44.0) Neutrophils # (Auto) 7.8 TH/MM3 (1.8-7.7) 8.6 TH/MM3 (1.8-7.7) Lymphocytes # (Auto) 0.8 TH/MM3 (1.0-4.8) 0.8 TH/MM3 (1.0-4.8) Random Glucose 159 MG/DL (74-106) 118 MG/DL (74-106) Calcium Level 8.1 MG/DL (8.5-10.1) 8.3 MG/DL (8.5-10.1) Hemoglobin 12.3 GM/DL (13.0-17.0) Monocytes (%) (Auto) 10.3 % (0.0-8.0) Monocytes # (Auto) 1.1 TH/MM3 (0-0.9) Imaging Last Impressions Head CT 09/04/17 0800 Signed Impressions: Service Date/Time: Monday, September 04, 2017 12:32 - CONCLUSION: Cystic mass of the left frontal lobe has been resected. Minimal luis f-surgical parenchymal contusion. Pneumocephaly. Decreased midline shift. Harris Dial MD Myocardial Perfusion Scan Nuc Med 09/02/17 0000 Signed Impressions: Service Date/Time: Saturday, September 02, 2017 13:05 - CONCLUSION: 1. Predominantly fixed lateral wall perfusion abnormality with mild surrounding reperfusion at rest characteristics of a myocardial infarct with associated ventricular dilatation. 2. Decreased ejection fraction measuring 48%%. 3. No evidence of significant stress-induced reversible perfusion abnormalities. RISK CATEGORY: Intermediate (1-3%% Annual Mortality Rate) Gael Wong MD Chest X-Ray 08/31/17 0000 Signed Impressions: Service Date/Time: Thursday, August 31, 2017 10:20 - CONCLUSION: 1. Patchy opacity in the left lung base which could represent early pneumonia. 2. Apparent scarring. 3. Status post median sternotomy. Tenzin Carrizales MD Chest CT 08/31/17 0000 Signed Impressions: Service Date/Time: Friday, September 01, 2017 17:17 - CONCLUSION: 1. Infiltrating endobronchial lesion in the left upper lobe bronchus with luminal irregularity and abnormal surrounding soft tissue in the left hilum. Enlarged subcarinal lymph node. Findings most characteristic of malignancy. There is also some lingular atelectasis distally as well as lingular bronchiectasis. 2. Fibrotic changes in the lungs predominantly at the bases and lung periphery without significant honeycombing. Mild to moderate emphysema. Thuan Mcdaniel MD Brain MRI 08/31/17 Signed Impressions: Service Date/Time: Thursday, August 31, 2017 11:23 - CONCLUSION: 1. 6 cm rim-enhancing mass in the left frontal lobe with surrounding vasogenic edema and mass effect. No other brain masses identified. Differential diagnosis includes primary brain tumor such as glioma. Cannot exclude metastatic disease. Thuan Mcdaniel MD Abdomen/Pelvis CT 08/31/17 Signed Impressions: Service Date/Time: Friday, September 01, 2017 17:17 - CONCLUSION: 1. Basilar fibrotic changes in the lungs with bronchiectasis in the lingula. 2. Severe coronary artery disease. 3. No acute findings within the abdomen or pelvis. Mild constipation. No mass or adenopathy identified. Thuan Mcdaniel MD PE at Discharge General: No acute distress. Sitting up in a chair. HEENT: Thompson in place on scalp. Heart: Regular rate and rhythm. No murmur. Lungs: Clear to auscultation bilaterally. No wheezes, rales, or rhonchi. Breathing is nonlabored. Abdomen: Soft, nontender, nondistended. Extremities: No lower extremity edema. SCDs. Psych: Alert and oriented. Pt update on day of discharge The patient has no complaints at this time. He wants to go home. No pain currently. Hospital Course The patient was admitted for further evaluation of confusion and brain mass. Neurosurgery was consulted. Surgery was recommended. Cardiology was consulted for abnormal nuclear stress test. Craniotomy with mass resection was done. Medical oncology was consulted for endobronchial lesion concerning for bronchogenic carcinoma. The patient did well postoperatively. He was cleared for discharge by neurosurgery. He was felt to be stable for discharge home with home health care. Pt Condition on Discharge: Stable Discharge Disposition: Disch w/ Home Health Serv Discharge Time: > 30 minutes Discharge Instructions DIET: Follow Instructions for: As Tolerated, No Restrictions Activities you can perform: Shower Only-No Bath Activities to Avoid: Lifting/Bending, Strenuous Activity, Bathing, Driving Other Activity Instructions: No pushing, pulling, lifting more than 5 pounds. Follow up Referrals: Neurosurgery with Sean Freeman MD Oncology/Hematology with Travis Owen MD New Medications: Dexamethasone (Dexamethasone) 4 Mg Tab 4 MG PO Q8HR, #30 TAB 1 Refill 4mg po q 8 hours x 3 days, then 4mg po q 12 hours x 3 days, then 2mg po bid, and continue this dose Levetiracetam (Keppra) 500 Mg Tab 500 MG PO Q12H, #60 TAB Pantoprazole (Pantoprazole) 40 Mg Tab 40 MG PO DAILY for 60 Days, #60 TAB Continued Medications: Albuterol 18 GM Inh (Ventolin Hfa 18 GM Inh) 90 Mcg/Act Aer 1 PUFF INH QID, #1 INHALER 0 Refills Amlodipine (Norvasc) 10 Mg Tab 10 MG PO DAILY for Blood Pressure Management, #30 TAB [address] (Aspirin EC) 81 Mg Tabdr 81 MG PO DAILY, TAB 0 Refills Atorvastatin (Atorvastatin) 80 Mg Tab 80 MG PO HS for Cholesterol Management, #30 TAB 0 Refills Carvedilol (Coreg) 25 Mg Tab 25 MG PO BID, #60 TAB 0 Refills Lisinopril (Lisinopril) 10 Mg Tab 10 MG PO DAILY, #30 TAB 0 Refills Prednisone (Prednisone) 1 Mg Tab 1 MG PO BID, TAB 0 Refills Spironolactone (Aldactone) 25 Mg Tab 25 MG PO DAILY, #30 TAB 0 Refills Santy Dill MD Sep 06, 2017 11:35
[2017-09-06] MEDS: AZITHROMYCIN INJ 500 MG in SODIUM CHLOR 0.9% 250 ML INJ 250 ML IV SCH (12:36)
[2017-09-06] MEDS ORDERED: DEXAMETHASONE 4 MG TAB PO SCH (18:00)
--- NOTE | 2017-09-06 19:47 | PD.ONC.PN ---
Subjective Subjective Remarks eager to go home today path results still pending sitting up in chair answered questions regarding potential diagnosis which appears to be metastatic bronchogenic carcinoma discussed systemic chemotherapy option will test for EGFR, ROS-1, ALK Fusion, and PD L-1 activity discussed case with Dr. Dooley as patient would need XRT treatment to the brain Objective Data Date Time Temp Pulse Resp B/P (MAP) Pulse Ox O2 Delivery O2 Flow Rate FiO2 09/06/17 08:31 97.3 60 18 124/68 (86) 97 09/06/17 04:00 97.2 56 18 132/66 (88) 96 09/06/17 00:00 98.5 90 18 137/70 (92) 97 09/05/17 20:00 98.2 68 18 111/55 (73) 98 Result Diagram: 09/05/17 0446 09/05/17 0446 Objective Remarks GENERAL: nad SKIN: Warm and dry. LYMPHATIC: No adenopathy. CARDIOVASCULAR: Regular rate and rhythm without murmurs. RESPIRATORY: Breath sounds equal bilaterally. No accessory muscle use. GASTROINTESTINAL: Abdomen soft, non-tender, nondistended. EXTREMITIES: No cyanosis, or edema. s/p craniotomy surgical scars well healed Assessment/Plan Problem List: (1) Lung mass ICD Codes: R91.8 - Other nonspecific abnormal finding of lung field (2) Brain mass ICD Codes: G93.9 - Disorder of brain, unspecified (3) COPD (chronic obstructive pulmonary disease) ICD Codes: J44.9 - Chronic obstructive pulmonary disease, unspecified (4) Tobacco abuse ICD Codes: Z72.0 - Tobacco use Travis Owen MD Sep 06, 2017 19:47
--- NOTE | 2017-09-07 09:16 | MB ---
cc: Dylon Walker MD,Travis Freeman,Sean Yañez MD DATE OF SERVICE: 09/06/2017 REFERRING PHYSICIAN: Dr. 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 STAGE: IV. CHIEF COMPLAINT: Confusion, numbness of the right leg. REASON FOR VISIT: The patient being evaluated for adjuvant radiotherapy treatment options. HISTORY OF PRESENT ILLNESS: This is a 67-year-old white male who spends the flores here in [place] and lives in [facility]. According to the and the daughter that were in the room when I did the physical examination and consultation, they were in a campground somewhere near [place]. The patient since sometime in August was experiencing confusion and change in personality. Some individuals in the campground stated to the that he did not seem like himself. stated that one day they were driving and he had an episode where he lost sensation of his right leg and was not able to use the pedals in the car. Following this, the called the primary care physician in [place] and they told him to go to the emergency room. They were initially evaluated in [place], where a mass was detected. The patient was transferred to this hospital where he was evaluated and had surgical resection, which is positive for the above-mentioned diagnosis. The patient is being discharged today. I am being consulted for adjuvant postoperative radiation therapy. I have discussed this case today with Dr. Owen. PAST MEDICAL HISTORY: As above. Also, history of COPD, tobacco abuse, coronary artery disease with stent placement, history of osteoarthritis, also history of coronary artery bypass grafting 2 years ago. MEDICATIONS: Per hospitalist chart. ALLERGIES: NO KNOWN DRUG ALLERGIES FAMILY HISTORY: Father with lung carcinoma. SOCIAL HISTORY: The patient has smoked a pack of cigarettes per day for about 40 years. ETOH intake socially. REVIEW OF SYSTEMS: CONSTITUTIONAL: The patient denies any loss of weight recently. ALLERGIES: Has not had allergic reaction recently. EYES: Denies any double vision. ENT: Denies any difficulty or pain on swallowing. NECK: Unremarkable. INTEGUMENT Unremarkable. CARDIOVASCULAR: Unremarkable. Denies any chest pains or clinical signs of NE. RESPIRATORY: Unremarkable. Denies any wheezing, cough, hemoptysis. GASTROINTESTINAL: Denies any rectal bleeding. GENITOURINARY: Unremarkable. MUSCULOSKELETAL: Denies any bone pain. NEUROLOGICAL: The patient has some expressive aphasia, but denies any decrease in motor functions at the present time. Denies any clinical symptoms of stroke. PSYCHIATRIC: Unremarkable. ENDOCRINE: Unremarkable. HEMATOLOGIC: Unremarkable. DERMATOLOGIC: Unremarkable. PHYSICAL EXAMINATION: GENERAL: The patient is oriented x3 in no acute distress or discomfort at the time of evaluation. VITAL SIGNS: Temperature 97.3, pulse 60, respiratory rate 18, blood pressure 124/68, pulse oximetry 97% on room air. BACK: To deep palpation and percussion of posterior back, no pain was elicited within joints or muscles. LUNGS: Clear to auscultation with decreased ventilatory respiratory effort which is equal and bilateral. HEART: Regular rate and rhythm. No murmurs. NECK: Palpation of the neck and bilateral supraclavicular areas without lymph nodes. ABDOMEN: Palpation of the abdominal cavity reveals no hepatosplenomegaly. No pain elicited. No periumbilical lymph nodes. EXTREMITIES: No lower extremity edema detected. NEUROLOGIC: No neurological deficit detected. Cognitive function preserved. The patient does have some slight expressive aphasia. No ataxia was detected. No sensory loss was detected. SKIN: No rash. Surgical scar detected on the skull on the left lateral temporal area. SURGICAL PATHOLOGY: Surgical pathology for 09/03/2017: Left frontal lobe mass high grade neoplasm with epithelioid features. Brain right frontal lobe mass biopsy: Metastatic, poorly differentiated squamous cell carcinoma. Brain left lateral lobe mass resection: Metastatic, poorly differentiated squamous cell carcinoma. RADIOLOGY DATA: CT of the chest at 08/31/2017: Infiltrating endobronchial lesion in the left upper lobe bronchus with luminal irregularity and abnormal surrounding soft tissue in the left hilum. Large subcarinal lymph node. Findings are characteristic of malignancy. There is also some lingular atelectasis distally as well as lingular bronchiectasis. Fibrotic changes in the lungs predominantly at the bases along the periphery without significant honeycomb. Mild to moderate emphysema. MRI of the brain 08/31/2017: Conclusion 1.6 cm ring enhancing mass in left frontal lobe with surrounding vasogenic edema and mass effect. No other brain masses identified. CT of the head for 09/04/2017: Cystic mass of the left frontal lobe has been resected. Minimal luis f surgical parenchymal contusion. Pneumocephali decreased midline shift. ASSESSMENT AND PLAN: A 67-year-old white male with diagnosis of metastatic squamous cell carcinoma, most likely from the lung to the brain. The patient is being evaluated for adjuvant postoperative radiotherapy treatment options. PLAN: I had an extensive discussion with the patient, his and his daughter. We discussed treatment modalities that being adjuvant postoperative radiation therapy to the tumor bed for local control. I discussed the merits of the radiation therapy and possibly doing stereotactic radiotherapy to the area. I advised the patient that once discharged, I would like to perform an MRI post-surgical resection with stereotactic radiosurgery protocol in order to be able to plan the radiation therapy to the area. We discussed the merits, side effects, complications of radiotherapy including but not limited to weakness and fatigue, decreased blood counts, edema of the skin, necrosis of the skin, also ____ which can be permanent, bone damage and bone fracture, brain damage, brain leukoencephalopathy changes in short-term and long-term memory, decreased hearing, loss of hearing, decreased vision or loss of vision. He understood everything that was explained. They are advised that the radiation will start in an average about 4 weeks following surgical resection. They understood this. I will see the patient as an outpatient. The case has been discussed today with Dr. Owen. The patient advised if I could be of any further assistance to please let me know. Otherwise, we will proceed as above. Dr. Owen, thank you very much referral of the patient and allowing me to participate in his care. Should you have any further questions or concerns, please do not hesitate to contact me. MD BIN Magallon// , 03:46 PM , 05:38 PM ANSELMO
[2017-09-09] MEDS ORDERED: DEXAMETHASONE 4 MG TAB PO SCH (22:00)
[2017-09-12] MEDS ORDERED: DEXAMETHASONE 4 MG TAB PO SCH (22:00)
== END 2017-09-06 17:47 | disposition home health service (06) | DRG 25 ==
LOC: N03B 20:00 → N05A 09-02 17:25 → N03B 09-03 12:37 → HCIS 09-03 16:02 → N03B 09-03 16:22 → N03A 09-03 17:00 → N05B 09-05 17:22
PROVIDERS: ADMIT Family Medicine; ATTEND Family Medicine
PROC: 00B70ZX Excision of Cerebral Hemisphere, Open Approach, Diagnostic (ICD-10-PCS; principal; 2017-09-03 12:04)
DX: C79.31 Secondary malignant neoplasm of brain (principal); G93.6 Cerebral edema; I95.9 Hypotension, unspecified; J84.10 Pulmonary fibrosis, unspecified; E87.1 Hypo-osmolality and hyponatremia; C34.12 Malignant neoplasm of upper lobe, left bronchus or lung; R47.01 Aphasia; Z68.1 Body mass index [BMI] 19.9 or less, adult; I08.1 Rheumatic disorders of both mitral and tricuspid valves; E83.39 Other disorders of phosphorus metabolism; J43.9 Emphysema, unspecified; I10 Essential (primary) hypertension; I25.10 Atherosclerotic heart disease of native coronary artery without angina pectoris; F17.210 Nicotine dependence, cigarettes, uncomplicated; J47.9 Bronchiectasis, uncomplicated; I49.1 Atrial premature depolarization; R59.0 Localized enlarged lymph nodes; M19.90 Unspecified osteoarthritis, unspecified site; M06.9 Rheumatoid arthritis, unspecified; E78.5 Hyperlipidemia, unspecified; T38.0X5A Adverse effect of glucocorticoids and synthetic analogues, initial encounter; R63.4 Abnormal weight loss; R73.9 Hyperglycemia, unspecified; I25.2 Old myocardial infarction; Z95.5 Presence of coronary angioplasty implant and graft; Z80.1 Family history of malignant neoplasm of trachea, bronchus and lung; Z95.1 Presence of aortocoronary bypass graft; Z79.82 Long term (current) use of aspirin
CPT/HCPCS: 70450; 70553; 71045; 71260; 74177; 78452; 80048; 80053; 81001; 82948; 83735; 84100; 85025; 85027; 85610; 85730; 87040; 87449; 87641; 87804; 88307; 88331; 88341; 88342; 93005; 93017; 93306; 94640; 94664; A9502; A9579; C1713; J0131; J0456; J0690; J1100; J1170; J1644; J1815; J1953; J2150; J2370; J2405; J2543; J2785; J3010; J3480; J7050; J7120; Q9963; Q9967